=== PATIENT | male | born 1975 | race Caucasian/White ===

== ENCOUNTER → 2018-03-01 | Outpatient (CLI) | payer BC ==
[2018-03-01 10:05] LABS: ABSOLUTE BASOPHILS # (AUTO) 0.1 10^3/uL (0.0-0.2); ABSOLUTE EOSINOPHILS # (AUTO) 0.3 10^3/uL (0.0-0.6); ABSOLUTE MONOCYTES (AUTO) 0.5 10^3/uL (0.1-1.4); BASOPHILS % (AUTO) 1.1 % (0-2); EOSINOPHILS % (AUTO) 4.6 % (0-6); HEMATOCRIT 47.7 % (37.9-51.0); HEMOGLOBIN 16.1 g/dL (13.5-17.0); LYMPHOCYTES % (AUTO) 29.1 % (13-45); MEAN CORPUSCULAR HEMOGLOBIN 30.5 pg (27.0-33.4); MEAN CORPUSCULAR HGB CONC 33.8 g/dL (32.0-36.0); MEAN CORPUSCULAR VOLUME 90 fl (80-97); MONOCYTES % (AUTO) 6.9 % (3-13); PLATELET COUNT 360 10^3/uL (150-450); RED BLOOD COUNT 5.29 10^6/uL (4.35-5.55); RED CELL DISTRIBUTION WIDTH 13.4 % (11.5-14.0); SEGMENTED NEUTROPHILS % (AUTO) 58.3 % (42-78); TOTAL CELLS COUNTED % (AUTO) 100 %; WHITE BLOOD COUNT 6.9 10^3/uL (4.0-10.5)
[2018-03-01 11:15] LABS: ALANINE AMINOTRANSFERASE 34 U/L (21-72); ALBUMIN 4.4 g/dL (3.5-5.0); ALKALINE PHOSPHATASE 77 U/L (38-126); ANION GAP 10 (5-19); ASPARTATE AMINO TRANSFERASE 22 U/L (17-59); BILIRUBIN,DIRECT 0.3 mg/dL (0.0-0.4); BILIRUBIN,TOTAL 0.3 mg/dL (0.2-1.3); BLOOD UREA NITROGEN 16 mg/dL (7-20); CALCIUM 9.8 mg/dL (8.4-10.2); CARBON DIOXIDE 27 mmol/L (22-30); CHLORIDE 107 mmol/L (98-107); GLUCOSE 98 mg/dL (75-110); POTASSIUM 4.5 mmol/L (3.6-5.0); SODIUM 144.2 mmol/L (137-145); TOTAL PROTEIN 7.2 g/dL (6.3-8.2)
[2018-03-01 12:05] LABS: FREE T3 4.42 pg/mL (2.77-5.27)
[2018-03-01 12:11] LABS: FREE T4 (FREE THYROXINE) 0.74 ng/dL (0.78-2.19)
[2018-03-01 12:19] LABS: THYROID STIMULATING HORMONE 1.69 uIU/mL (0.47-4.68)
[2018-03-02 09:01] LABS: DEHYDROEPIANDROSTERONE SULFATE 130.5 ug/dL (102.6-416.3)
[2018-03-03 12:59] LABS: TESTOSTERONE FREE (DIRECT) 10.3 pg/mL (6.8-21.5)
[2018-03-05 07:48] LABS: ESTRONE SERUM 35 pg/mL (12-72); REVERSE T3 15.3 ng/dL (9.2-24.1)
[2018-03-06 07:05] LABS: DIHYDROTESTOSTERONE 20 ng/dL (.)
== END ==
LOC: OD 08:58
PROVIDERS: ATTEND Student in an Organized Health Care Education/Training Program
DX: R53.83 Other fatigue (principal); R63.5 Abnormal weight gain; B35.4 Tinea corporis; G47.33 Obstructive sleep apnea (adult) (pediatric); R03.0 Elevated blood-pressure reading, without diagnosis of hypertension; Z13.220 Encounter for screening for lipoid disorders
CPT/HCPCS: 36415; 80053; 82306; 82607; 82627; 82670; 82679; 83001; 83002; 83090; 83695; 84140; 84146; 84153; 84402; 84403; 84439; 84443; 84481; 84482; 85025; 86340

== ENCOUNTER → 2018-03-15 | Outpatient (CLI) | payer BC ==
[2018-03-17 03:36] LABS: CHOLESTEROL TOTAL 144 mg/dL (100-199); HDL-C 34 mg/dL (>39); HDL-P (TOTAL) 24.9 umol/L (>=30.5); SMALL LDL-P 198 nmol/L (<=527); TRIGLYCERIDES 77 mg/dL (0-149)
[2018-03-17 03:59] LABS: LDL-C 95 mg/dL (0-99); LDL-P 1098 nmol/L (<1000)
[2018-03-17 04:00] LABS: LP-IR SCORE 55 (<=45)
== END ==
LOC: OD 08:30
PROVIDERS: ATTEND Student in an Organized Health Care Education/Training Program
DX: Z00.00 Encounter for general adult medical examination without abnormal findings (principal)
CPT/HCPCS: 36415; 80061

== ENCOUNTER → 2019-02-05 | Outpatient (CLI) | payer BC ==
[2019-02-05 10:23] LABS: ABSOLUTE BASOPHILS # (AUTO) 0.1 10^3/uL (0.0-0.2); ABSOLUTE EOSINOPHILS # (AUTO) 0.2 10^3/uL (0.0-0.6); ABSOLUTE LYMPHOCYTES (AUTO) 1.5 10^3/uL (0.5-4.7); ABSOLUTE MONOCYTES (AUTO) 0.5 10^3/uL (0.1-1.4); ABSOLUTE NEUT (AUTO) 5.9 10^3/uL (1.7-8.2); BASOPHILS % (AUTO) 0.7 % (0-2); EOSINOPHILS % (AUTO) 2.7 % (0-6); HEMATOCRIT 45.3 % (37.9-51.0); HEMOGLOBIN 15.3 g/dL (13.5-17.0); LYMPHOCYTES % (AUTO) 18.8 % (13-45); MEAN CORPUSCULAR HEMOGLOBIN 30.2 pg (27.0-33.4); MEAN CORPUSCULAR HGB CONC 33.7 g/dL (32.0-36.0); MEAN CORPUSCULAR VOLUME 90 fl (80-97); MONOCYTES % (AUTO) 6.5 % (3-13); PLATELET COUNT 337 10^3/uL (150-450); RED BLOOD COUNT 5.05 10^6/uL (4.35-5.55); RED CELL DISTRIBUTION WIDTH 13.6 % (11.5-14.0); SEGMENTED NEUTROPHILS % (AUTO) 71.3 % (42-78); TOTAL CELLS COUNTED % (AUTO) 100 %; WHITE BLOOD COUNT 8.3 10^3/uL (4.0-10.5)
[2019-02-05 10:31] LABS: APPEARANCE,URINE CLEAR; BILIRUBIN,URINE NEGATIVE (NEGATIVE); COLOR,URINE YELLOW; GLUCOSE, URINE NEGATIVE (NEGATIVE); KETONES,URINE NEGATIVE (NEGATIVE); LEUKOCYTE ESTERASE,URINE NEGATIVE (NEGATIVE); NITRITE,URINE NEGATIVE (NEGATIVE); PROTEIN,URINE NEGATIVE (NEGATIVE); URINE SPECIFIC GRAVITY 1.021; UROBILINOGEN,URINE NEGATIVE mg/dL (<2.0)
[2019-02-05 11:03] LABS: ALANINE AMINOTRANSFERASE 32 U/L (21-72); ALBUMIN 4.2 g/dL (3.5-5.0); ALKALINE PHOSPHATASE 71 U/L (38-126); ANION GAP 7 (5-19); ASPARTATE AMINO TRANSFERASE 29 U/L (17-59); BILIRUBIN,DIRECT 0.2 mg/dL (0.0-0.4); BILIRUBIN,TOTAL 0.7 mg/dL (0.2-1.3); BLOOD UREA NITROGEN 16 mg/dL (7-20); CALCIUM 9.7 mg/dL (8.4-10.2); CARBON DIOXIDE 25 mmol/L (22-30); CHLORIDE 108 mmol/L (98-107); CHOLESTEROL 187.04 mg/dL (0-200); CREATINE KINASE 269 U/L (55-170); GAMMA-GLUTAMYL TRANSFERASE 19 U/L (8-78); GLUCOSE 89 mg/dL (75-110); POTASSIUM 4.6 mmol/L (3.6-5.0); SODIUM 140.4 mmol/L (137-145); TOTAL PROTEIN 7.1 g/dL (6.3-8.2); TRIGLYCERIDES 98 mg/dL (<150)
[2019-02-05 11:15] LABS: DIRECT LDL 127 mg/dL (<100)
[2019-02-05 12:27] LABS: CHLAM PCR NOT DETECTED (NOT DETECT); GON PCR NOT DETECTED (NOT DETECT)
[2019-02-06 10:37] LABS: CREATININE URINE 135.4 mg/dL (Not Estab.); MICROALBUMIN URINE 3.1 ug/mL (Not Estab.)
[2019-02-07 10:37] LABS: HEPATITIS C QUANTITATION HCV Not Detected IU/mL (.)
== END ==
LOC: OD 08:42
PROVIDERS: ATTEND Family Medicine
DX: R03.0 Elevated blood-pressure reading, without diagnosis of hypertension (principal); Z12.5 Encounter for screening for malignant neoplasm of prostate; Z11.59 Encounter for screening for other viral diseases
CPT/HCPCS: 36415; 80053; 80061; 81005; 82043; 82306; 82550; 82570; 82607; 82977; 83036; 83525; 83735; 84153; 84403; 84443; 85025; 86592; 86701; 87491; 87522; 87591

== ENCOUNTER → 2019-08-26 | Outpatient (CLI) | payer BC ==
[2019-08-26 09:13] LABS: APPEARANCE,URINE CLEAR; BILIRUBIN,URINE NEGATIVE (NEGATIVE); COLOR,URINE YELLOW; GLUCOSE, URINE NEGATIVE (NEGATIVE); KETONES,URINE NEGATIVE (NEGATIVE); LEUKOCYTE ESTERASE,URINE NEGATIVE (NEGATIVE); NITRITE,URINE NEGATIVE (NEGATIVE); PROTEIN,URINE NEGATIVE (NEGATIVE); UROBILINOGEN,URINE NEGATIVE mg/dL (<2.0)
[2019-08-26 09:37] LABS: ALBUMIN 4.2 g/dL (3.5-5.0); ALKALINE PHOSPHATASE 83 U/L (38-126); ANION GAP 11 (5-19); ASPARTATE AMINO TRANSFERASE 20 U/L (17-59); BILIRUBIN,DIRECT 0.1 mg/dL (0.0-0.4); BILIRUBIN,TOTAL 0.5 mg/dL (0.2-1.3); BLOOD UREA NITROGEN 14 mg/dL (7-20); CALCIUM 9.5 mg/dL (8.4-10.2); CARBON DIOXIDE 24 mmol/L (22-30); CHLORIDE 105 mmol/L (98-107); CHOLESTEROL 193.69 mg/dL (0-200); GLUCOSE 119 mg/dL (75-110); POTASSIUM 4.1 mmol/L (3.6-5.0); TOTAL PROTEIN 7.2 g/dL (6.3-8.2); TRIGLYCERIDES 99 mg/dL (<150)
[2019-08-26 09:50] LABS: DIRECT LDL 140 mg/dL (<100)
[2019-08-27 10:36] LABS: CREATININE URINE 238.8 mg/dL (Not Estab.); MICROALBUMIN URINE 9.2 ug/mL (Not Estab.)
[2019-08-28 10:09] LABS: TESTOSTERONE %FREE/WEAKLY BOUN 33.5 % (9.0-46.0); TESTOSTERONE FREE WEAKLY BOUND 62.6 ng/dL (40.0-250.0)
== END ==
LOC: OD 08:12
PROVIDERS: ATTEND Family Medicine
DX: R03.0 Elevated blood-pressure reading, without diagnosis of hypertension (principal); R79.89 Other specified abnormal findings of blood chemistry
CPT/HCPCS: 36415; 80053; 80061; 81005; 82043; 82570; 84402; 84403

== ENCOUNTER → 2020-10-06 | Outpatient (CLI) | payer BC ==
[2020-10-06 09:06] LABS: ALBUMIN 4.3 g/dL (3.5-5.0); ALKALINE PHOSPHATASE 78 U/L (38-126); ANION GAP 8 (5-19); ASPARTATE AMINO TRANSFERASE 26 U/L (17-59); BILIRUBIN,DIRECT 0.1 mg/dL (0.0-0.4); BILIRUBIN,TOTAL 0.7 mg/dL (0.2-1.3); BLOOD UREA NITROGEN 20 mg/dL (7-20); CALCIUM 9.8 mg/dL (8.4-10.2); CARBON DIOXIDE 27 mmol/L (22-30); CHLORIDE 105 mmol/L (98-107); CHOLESTEROL 205.08 mg/dL (0-200); GLUCOSE 99 mg/dL (75-110); POTASSIUM 4.3 mmol/L (3.6-5.0); TOTAL PROTEIN 7.1 g/dL (6.3-8.2); TRIGLYCERIDES 132 mg/dL (<150)
[2020-10-06 09:17] LABS: DIRECT LDL 140 mg/dL (<100)
[2020-10-07 10:37] LABS: CREATININE URINE 204.5 mg/dL (Not Estab.); MICROALBUMIN URINE 7.7 ug/mL (Not Estab.)
== END ==
LOC: OD 07:37
PROVIDERS: ATTEND Family Medicine
DX: I10 Essential (primary) hypertension (principal); E78.5 Hyperlipidemia, unspecified
CPT/HCPCS: 36415; 80053; 80061; 82043; 82570; 82977

== ENCOUNTER 2020-11-04 18:31 | Emergency (ER) | payer BC ==
[2020-11-04] MEDS ORDERED: RINGERS SOLUTION,LACTATED 1,000 ML IV ONE (19:22)
--- NOTE | 2020-11-04 20:13 | EKG REPORT ---
SEVERITY:- NORMAL ECG - SINUS RHYTHM : Confirmed by: Elia Yates MD 04-Nov-2020 20:12:54
--- NOTE | 2020-11-04 20:27 | RADIOLOGY REPORT (SQ) ---
EXAM DESCRIPTION: CHEST SINGLE VIEW CLINICAL HISTORY: 45 years Male, short of breath. COMPARISON: Single view of the chest March 21, 2013 FINDINGS: Exam is limited secondary to motion. Lungs: There is scattered peripheral areas of nodular infiltrate bilaterally. This is most pronounced in the midlungs. No obvious pneumothorax. No definitive pleural effusions. Mediastinum: Cardiac and mediastinal silhouette are widened and unchanged Bones: Osseous structures are unremarkable IMPRESSION: Low lung volumes with multifocal peripheral nodular infiltrate. This is concerning for multifocal pneumonia.
--- NOTE | 2020-11-04 20:37 | ER Document Report ---
Entered by JENNYFER GORDON SCRIBE 11/04/201951 Acting as scribe for:TATA PANDEY DO ED General - General Chief Complaint: Shortness Of Breath Stated Complaint: SHORTNESS OF BREATH Primary Care Provider: ABRAHAN DIALLO MD [Primary Care Provider] - Follow up as needed Information source: Patient Notes: This 45 year old male patient with history of HTN, presents to the emergency department today with complaints of malaise for the past x1 week. Patient states he was exposed to a coworker who has tested positive a week ago for covid after having borrowed her phone. Patient reports a dry, non-productive cough and low grade fever. has a O2 meter at home and measured his oxygen saturation in the low 80's on room air today. TRAVEL OUTSIDE OF THE [place] IN LAST 30 DAYS: No - Related Data Allergies/Adverse Reactions: No Known Allergies Allergy (Verified 11/04/20 18:42) Past Medical History - General Information source: Patient - Social History Smoking Status: Never Smoker Chew tobacco use (# tins/day): No Frequency of alcohol use: None Drug Abuse: None Family History: Reviewed & Not Pertinent - Past Medical History Cardiac Medical History: Reports: Hx Hypertension - controlled Review of Systems - Review of Systems Constitutional: See HPI, Fever - low grade, Malaise EENT: No symptoms reported Cardiovascular: No symptoms reported Respiratory: See HPI, Cough, Other - low O2 saturation. denies: Sputum Gastrointestinal: No symptoms reported Genitourinary: No symptoms reported Male Genitourinary: No symptoms reported Musculoskeletal: No symptoms reported Skin: No symptoms reported Hematologic/Lymphatic: No symptoms reported Neurological/Psychological: No symptoms reported -: Yes All other systems reviewed and negative Physical Exam - Vital signs Vitals: Temp 99.7 F 11/04/20 18:55 - General General appearance: Alert - HEENT Head: Normocephalic, Atraumatic Eyes: Normal Pupils: PERRL Mouth/Lips: Normal Mucous membranes: Dry - Respiratory Chest status: Nontender Chest palpation: Normal Notes: Breath sounds are mildly diminished bilaterally, clear otherwise. - Cardiovascular Rhythm: Regular Heart sounds: Normal auscultation Murmur: No - Abdominal Inspection: Obese Distension: No distension Bowel sounds: Normal Tenderness: Nontender - Extremities General upper extremity: Normal inspection, Normal ROM General lower extremity: Normal inspection, Normal ROM. No: Edema - Neurological Neuro grossly intact: Yes Cognition: Normal Orientation: AAOx4 [place] Coma Scale Eye Opening: Spontaneous [place] Coma Scale Verbal: Oriented [place] Coma Scale Motor: Obeys Commands [place] Coma Scale Total: 15 Speech: Normal Sensory: Normal - Psychological Associated symptoms: Normal affect, Normal mood - Skin Skin Temperature: Warm Skin Moisture: Dry Skin Color: Normal Course - Re-evaluation Re-evalutation: 11/05/20 00:25 MDM I had long discussion with the pt regarding return precautions and he has home O2 monitor to keep a check on the saturation in his lungs at home. He sats >90 here and tells me he feels comfortable going home. We discussed the treatment reccomendations and he has family at home to help with caring for him. - Vital Signs Vital signs: Temp Pulse Resp BP Pulse Ox 99.3 F 101 H 22 H 134/87 H 95 11/04/20 23:21 11/04/20 23:36 11/04/20 23:36 11/04/20 23:36 11/04/20 23:36 - Laboratory Results Result Diagrams: 11/04/20 20:15 11/04/20 20:15 Laboratory Results Interpreted: 11/04/20 11/04/20 11/04/20 20:15 20:15 20:15 D-Dimer 0.67 H Carbon Dioxide 31 H AST 199 H ALT 245 H Creatine Kinase 258 H C-Reactive Protein 43.8 H Albumin 3.4 L Urine Urobilinogen 4.0 H Critical Laboratory Results Reviewed: No Critical Results - Radiology Results Critical Radiology Results Reviewed: No Critical Results - EKG Interpretation by Me EKG shows normal: Sinus rhythm Rate: Normal Rhythm: NSR - NSR NL axis [address] elevation or depression my interpretation. Discharge - Discharge Clinical Impression: COVID-19 Condition: Stable Disposition: HOME, SELF-CARE Instructions: COVID-19 Guidance for Persons Under Investigation, Pneumonia ([facility]) Additional Instructions: You have covid pneumonia. Take 1 gram of Vitamin C daily. Take Vitamin D Daily. Take 50 mg Zinc daily. Take 162 mg aspirin daily. Take the steroids as directed. Call your doctor in the morning for follow up. Please return here for chest pain or shortness of breath or other problems or concerns. Your medicine was sent to [facility] in [place]. Prescriptions: Albuterol Sulfate [Albuterol Sulfate Hfa] 2 puff IH TID #1 hfa.aer.ad Dexamethasone [Decadron] 4 mg PO DAILY #12 tablet Cholecalciferol (Vitamin D3) [Vitamin D3 400 Unit Tablet] 800 unit PO DAILY #30 tablet Zinc [Zinc Chelated] 50 mg PO DAILY #14 tablet Referrals: ABRAHAN DIALLO MD [Primary Care Provider] - Follow up as needed I personally performed the services described in the documentation, reviewed and edited the documentation which was dictated to the scribe in my presence, and it accurately records my words and actions.
[2020-11-04 20:38] LABS: APPEARANCE,URINE CLEAR; BILIRUBIN,URINE NEGATIVE (NEGATIVE); COLOR,URINE YELLOW; GLUCOSE, URINE NEGATIVE (NEGATIVE); KETONES,URINE NEGATIVE (NEGATIVE); LEUKOCYTE ESTERASE,URINE NEGATIVE (NEGATIVE); NITRITE,URINE NEGATIVE (NEGATIVE); PROTEIN,URINE NEGATIVE (NEGATIVE); URINE SPECIFIC GRAVITY 1.014
[2020-11-04 20:44] LABS: ABSOLUTE MONOCYTES (AUTO) 0.4 10^3/uL (0.1-1.4); BASOPHILS % (AUTO) 0.2 % (0-2); LYMPHOCYTES % (AUTO) 18.8 % (13-45); MEAN CORPUSCULAR HGB CONC 34.1 g/dL (32.0-36.0); MEAN CORPUSCULAR VOLUME 88 fl (80-97); PLATELET COUNT 244 10^3/uL (150-450); RED BLOOD COUNT 4.67 10^6/uL (4.35-5.55); RED CELL DISTRIBUTION WIDTH 13.3 % (11.5-14.0); TOTAL CELLS COUNTED % (AUTO) 100 %; WHITE BLOOD COUNT 5.5 10^3/uL (4.0-10.5)
[2020-11-04 20:56] LABS: ALBUMIN 3.4 g/dL (3.5-5.0); ALKALINE PHOSPHATASE 79 U/L (38-126); ANION GAP 6 (5-19); ASPARTATE AMINO TRANSFERASE 199 U/L (17-59); BILIRUBIN,DIRECT 0.3 mg/dL (0.0-0.4); BILIRUBIN,TOTAL 0.5 mg/dL (0.2-1.3); BLOOD UREA NITROGEN 11 mg/dL (7-20); C-REACTIVE PROTEIN 43.8 mg/L (<10.0); CALCIUM 8.5 mg/dL (8.4-10.2); CARBON DIOXIDE 31 mmol/L (22-30); CHLORIDE 102 mmol/L (98-107); CREATINE KINASE 258 U/L (55-170); GLUCOSE 100 mg/dL (75-110); POTASSIUM 3.8 mmol/L (3.6-5.0); TOTAL PROTEIN 6.4 g/dL (6.3-8.2)
[2020-11-04] MEDS ORDERED: DEXAMETHASONE SOD PHOSPHATE INJ 4 MG/1 ML VIAL IV ONE (21:06)
[2020-11-04] MEDS ORDERED: CEFTRIAXONE 1 GM/D5W RTU 1 GM/50 ML RTUPB IV ONE (21:07)
[2020-11-04] MEDS ORDERED: ACETAMINOPHEN 325 MG TABLET PO ONE (21:08)
--- NOTE | 2020-11-04 22:44 | RADIOLOGY REPORT (SQ) ---
EXAM DESCRIPTION: CT CHEST ANGIOGRAPHY WITH IV CONTRAST COMPLETED DATE/TME: 11/04/2020 22:22 CLINICAL HISTORY: 45 years, Male, sob, COVID + COMPARISON: None. TECHNIQUE: 649 Images stored on PACS. All CT scanners at this facility use dose modulation, iterative reconstruction, and/or weight based dosing when appropriate to reduce radiation dose to as low as reasonably achievable (ALARA). Axial CTA images with coronal and sagittal MIPS [facility]: Dose Right [facility]: CareDose [facility]: Dose Right [facility]: Teradose 4D [facility]: [employer] LIMITATIONS: None. FINDINGS: Contrast bolus is significantly suboptimal. No large or central pulmonary embolus. Evaluation of the remaining arterial branches is nondiagnostic. Nonenlarged mediastinal and hilar lymph nodes. Negative for thoracic aortic aneurysm or dissection. The heart and pericardium are unremarkable. Limited evaluation of the upper abdomen shows fatty infiltrative change to the liver. Subcentimeter hypodensity in the left hepatic lobe likely reflects tiny cyst. Osseous structures are grossly intact. There is no pneumothorax. Extensive groundglass opacities bilaterally consistent with multifocal pneumonitis. No effusion IMPRESSION: Multifocal pneumonitis with extensive groundglass opacities bilaterally. No large or central pulmonary embolus. Suboptimal contrast bolus TECHNICAL DOCUMENTATION: Quality ID # [id number]: Final reports with documentation of one or more dose reduction techniques (e.g., Automated exposure control, adjustment of the mA and/or kV according to patient size, use of iterative reconstruction technique) copyright 2010 [email or web address]- All Rights Reserved
[2020-11-04 23:37] VITALS: BP 134/87
== END 2020-11-05 00:23 | disposition home or self-care (01) ==
LOC: ER 18:31
DX: U07.1 COVID-19 (principal); R53.81 Other malaise; R05 Cough; R50.9 Fever, unspecified; I10 Essential (primary) hypertension
CPT/HCPCS: 93005; 99285; 96361; 96375; 96365; 36415; 87040; 82550; 83605; 85025; 0241U; 86140; 80053; 81001; 84484; 85379; 71045; 71275; 93010; J1100; J7120; J0696; C9803

== ENCOUNTER 2020-11-06 11:28 | Emergency (ER) | payer BC ==
[2020-11-06] MEDS ORDERED: DEXAMETHASONE SOD PHOS INJ 10 MG/1 ML VIAL IV ONE (11:49)
[2020-11-06] MEDS ORDERED: AZITHROMYCIN INJ 500 MG VIAL IV ONE (11:49)
[2020-11-06] MEDS ORDERED: CEFTRIAXONE INJ 1000 MG VIAL IV ONE (11:50)
--- NOTE | 2020-11-06 11:51 | ER Document Report ---
ED Respiratory Problem - General Chief Complaint: Breathing Difficulty Stated Complaint: DIFFICULTY BREATHING Time Seen by Provider: 11/06/20 11:37 Primary Care Provider: ABRAHAN DIALLO MD [Primary Care Provider] - Follow up as needed Mode of Arrival: Ambulatory Information source: Patient Notes: 45-year-old male who was here in ER on 04 November and tested positive for Covid. Since then he has been having progressive shortness of breath with 84% room air sats. He reports she has 16 hunting dogs and he loves to reyes deer at but none the dogs are sick at this time. Patient denies any fever chills sore throat cephalgia. Patient reports he does have a oxygen tank at home but needs a regulator. He is related to Grace who works here at the ER. TRAVEL OUTSIDE OF THE [place] IN LAST 30 DAYS: No - HPI Patient complains to provider of: Cough, Short of breath Onset: Other - x few days Severity: Mild Pain Level: 1 Context: denies: Hx asthma, Hx CHF, Hx COPD, Malignancy, , Recent car diac event, Recent foreign travel, Recent long distance trvl, Recent immobilization, Recent surgery, Smoker - Related Data Allergies/Adverse Reactions: No Known Allergies Allergy (Verified 11/04/20 18:42) Past Medical History - General Information source: Patient - Social History Smoking Status: Never Smoker Cigarette use (# per day): No Chew tobacco use (# tins/day): No Smoking Education Provided: No Frequency of alcohol use: None Lives with: Family Family History: Reviewed & Not Pertinent Patient has suicidal ideation: No Patient has homicidal ideation: No - Past Medical History Cardiac Medical History: Reports: Hx Hypertension - controlled Review of Systems - Review of Systems Constitutional: See HPI, Fever, Malaise, Weakness, Recent illness EENT: No symptoms reported Cardiovascular: No symptoms reported Respiratory: See HPI, Cough, Short of breath Gastrointestinal: No symptoms reported Genitourinary: No symptoms reported Male Genitourinary: No symptoms reported Musculoskeletal: No symptoms reported Skin: No symptoms reported Hematologic/Lymphatic: No symptoms reported Neurological/Psychological: No symptoms reported Physical Exam - Vital signs Vitals: Temp Pulse Resp BP Pulse Ox 98.5 F 103 H 26 H 143/78 H 84 L 11/06/20 11:33 11/06/20 11:33 11/06/20 11:33 11/06/20 11:33 11/06/20 11:33 Interpretation: Hypertensive, Hypoxic, Tachypneic, Febrile - General General appearance: Appears well, Alert - HEENT Head: Normocephalic, Atraumatic Eyes: Normal Pupils: PERRL - Respiratory Respiratory status: Labored, Tachypnea Chest status: Nontender Breath sounds: Decreased air movement Chest palpation: Normal - Cardiovascular Rhythm: Regular Heart sounds: Normal auscultation Murmur: No - Abdominal Inspection: Normal Distension: No distension Bowel sounds: Normal Tenderness: Nontender Organomegaly: No organomegaly - Rectal Prostate: Other - deferred - Genitourinary Scrotum: Other - Deferred - Back Back: Normal, Nontender - Extremities General upper extremity: Normal inspection, Nontender, Normal color, Normal ROM, Normal temperature General lower extremity: Normal inspection, Nontender, Normal color, Normal ROM, Normal temperature, Normal weight bearing. No: Brigida's sign - Neurological Neuro grossly intact: Yes Cognition: Normal Orientation: AAOx4 [place] Coma Scale Eye Opening: Spontaneous Angie Coma Scale Verbal: Oriented Angie Coma Scale Motor: Obeys Commands [place] Coma Scale Total: 15 Speech: Normal Motor strength normal: LUE, RUE, LLE, RLE Sensory: Normal - Psychological Associated symptoms: Normal affect, Normal mood - Skin Skin Temperature: Warm Skin Moisture: Dry Skin Color: Normal Course - Vital Signs Vital signs: Temp Pulse Resp BP Pulse Ox 98.5 F 103 H 22 H 137/85 H 92 11/06/20 11:33 11/06/20 11:33 11/06/20 14:01 11/06/20 14:01 11/06/20 14:01 - Laboratory Results Result Diagrams: 11/06/20 12:01 11/06/20 12:01 Laboratory Results Interpreted: 11/06/20 11/06/20 11/06/20 12:01 12:01 12:01 WBC 15.0 H D Seg Neuts % (Manual) 92 H Lymphocytes % (Manual) 6 L Monocytes % (Manual) 2 L Abs Neuts (Manual) 13.8 H VBG pH 7.48 H Glucose 125 H AST 90 H ALT 158 H Critical Laboratory Results Reviewed: Yes Attending or Supervising Physician who Reviewed Labs: MILY BOWDEN JR - Radiology Results Critical Radiology Results Reviewed: Yes Attending or Supervising Physician who Reviewed Radiology: MILY BOWDEN JR Critical Care Note - Critical Care Note Comments: I advised patient he may stay in the hospital but patient advises he would prefer to go home on oxygen. May use the nasal cannula as we have used here and his treatment today. Discharge - Discharge Clinical Impression: Hypoxia Pneumonia Qualifiers: Pneumonia type: due to unspecified organism Laterality: unspecified laterality Lung location: unspecified part of lung Qualified Code(s): J18.9 - Pneumonia, unspecified organism Condition: Stable Disposition: HOME, SELF-CARE Additional Instructions: Use oxygen as directed encourage fluids and return to ER if you become more severely hypoxic short of breath. Take medicines as directed. Also ivermectin is of no known treatment for COVID-19 according to studies. This has been given to you here because of a [place] study only. Also take Pepcid [id number] or by prescription as well as Zithromax. Continue with your Decadron steroid medication. Prescriptions: Famotidine [Pepcid 20 mg Tablet] 20 mg PO BID #12 tablet Azithromycin [Zithromax 250 mg Tablet] 250 mg PO ASDIR PRN #6 tablet PRN Reason: Forms: Return to Work Referrals: ABRAHAN DIALLO MD [Primary Care Provider] - Follow up as needed
--- NOTE | 2020-11-06 11:51 | RADIOLOGY REPORT (SQ) ---
EXAM DESCRIPTION: CHEST SINGLE VIEW IMAGES COMPLETED DATE/TIME: 11/06/2020 11:40 am REASON FOR STUDY: bed 10 sepsis protocol COMPARISON: 11/04/2020. EXAM PARAMETERS: NUMBER OF VIEWS: One view. TECHNIQUE: Single frontal radiographic view of the chest acquired. RADIATION DOSE: NA LIMITATIONS: None. FINDINGS: LUNGS AND PLEURA: Faint bilateral airspace disease, generally improved. No pleural effusi on. No pneumothorax. MEDIASTINUM AND HILAR STRUCTURES: No masses. Contour normal. HEART AND VASCULAR STRUCTURES: Heart normal in size. Normal vasculature. BONES: No acute findings. HARDWARE: None in the chest. OTHER: No other significant finding. IMPRESSION: MULTIFOCAL PNEUMONIA. GENERALLY IMPROVED APPEARANCE. TECHNICAL DOCUMENTATION: JOB ID: [id number] 2010 [employer]- All Rights Reserved Reading location - IP/workstation name: [email or web address]
[2020-11-06 12:24] LABS: INTERNATIONAL RATION (INR) 0.87; PROTHROMBIN TIME 12.1 SEC (11.4-15.4)
[2020-11-06 12:30] LABS: VENOUS BLOOD BASE EXCESS 3.7 mmol/L; VENOUS BLOOD HCO3 27.1 mmol/L (20-32); VENOUS BLOOD PCO2 37.3 mmHg (35-63); VENOUS BLOOD PH 7.48 (7.30-7.42)
[2020-11-06 12:34] LABS: HEMATOCRIT 40.5 % (37.9-51.0); HEMOGLOBIN 13.8 g/dL (13.5-17.0); MEAN CORPUSCULAR HEMOGLOBIN 29.9 pg (27.0-33.4); MEAN CORPUSCULAR HGB CONC 34.1 g/dL (32.0-36.0); MEAN CORPUSCULAR VOLUME 88 fl (80-97); PLATELET COUNT 359 10^3/uL (150-450); RED BLOOD COUNT 4.62 10^6/uL (4.35-5.55); RED CELL DISTRIBUTION WIDTH 13.5 % (11.5-14.0)
[2020-11-06 12:41] LABS: ALBUMIN 3.5 g/dL (3.5-5.0); ALKALINE PHOSPHATASE 74 U/L (38-126); ANION GAP 8 (5-19); ASPARTATE AMINO TRANSFERASE 90 U/L (17-59); BILIRUBIN,DIRECT 0.3 mg/dL (0.0-0.4); BILIRUBIN,TOTAL 0.6 mg/dL (0.2-1.3); BLOOD UREA NITROGEN 15 mg/dL (7-20); CALCIUM 9.1 mg/dL (8.4-10.2); CARBON DIOXIDE 27 mmol/L (22-30); CHLORIDE 105 mmol/L (98-107); GLUCOSE 125 mg/dL (75-110); TOTAL PROTEIN 6.4 g/dL (6.3-8.2)
[2020-11-06] MEDS ORDERED: IVERMECTIN 3 MG TABLET PO ONE (13:08)
[2020-11-06] MEDS ORDERED: FAMOTIDINE 20 MG TABLET PO ONE (13:08)
[2020-11-06 13:10] LABS: ABSOLUTE LYMPHOCYTES# (MANUAL) 0.9 10^3/uL (0.5-4.7); ABSOLUTE MONOCYTES # (MANUAL) 0.3 10^3/uL (0.1-1.4); BASOPHILS % (MANUAL) 0 % (0-2); EOSINOPHILS % (MANUAL) 0 % (0-6); LYMPHOCYTES % (MANUAL) 6 % (13-45); MONOCYTES % (MANUAL) 2 % (3-13); SEGMENTED NEUTROPHILS % (MAN) 92 % (42-78); TOTAL CELLS COUNTED 100
[2020-11-06 13:11] LABS: WBC MORPHOLOGY COMMENT A
[2020-11-06 13:21] LABS: PLATELET COMMENT ADEQUATE
[2020-11-06 15:34] VITALS: BP 153/91
--- NOTE | 2020-11-06 22:26 | EKG REPORT ---
SEVERITY:- NORMAL ECG - SINUS RHYTHM : Confirmed by: Elia Yates MD 06-Nov-2020 22:25:27
== END 2020-11-06 16:50 | disposition home or self-care (01) ==
LOC: ER 11:28
DX: U07.1 COVID-19 (principal); J12.89 Other viral pneumonia; R09.02 Hypoxemia; R06.02 Shortness of breath; R05 Cough
CPT/HCPCS: 93005; 99285; 96375; 96365; 96367; 36415; 87040; 83605; 85025; 85610; 80053; 84484; 82803; 71045; 93010; J0696; J0456; J1100

== ENCOUNTER 2020-11-08 13:17 | Inpatient (IN) | payer BC ==
[2020-11-08 13:52] LABS: ABSOLUTE LYMPHOCYTES (AUTO) 0.7 10^3/uL (0.5-4.7); ABSOLUTE MONOCYTES (AUTO) 1.2 10^3/uL (0.1-1.4); ABSOLUTE NEUT (AUTO) 10.1 10^3/uL (1.7-8.2); BASOPHILS % (AUTO) 0.1 % (0-2); HEMATOCRIT 42.1 % (37.9-51.0); HEMOGLOBIN 14.1 g/dL (13.5-17.0); LYMPHOCYTES % (AUTO) 5.4 % (13-45); MEAN CORPUSCULAR HEMOGLOBIN 29.5 pg (27.0-33.4); MEAN CORPUSCULAR HGB CONC 33.4 g/dL (32.0-36.0); MEAN CORPUSCULAR VOLUME 88 fl (80-97); MONOCYTES % (AUTO) 10.1 % (3-13); PLATELET COUNT 440 10^3/uL (150-450); RED BLOOD COUNT 4.77 10^6/uL (4.35-5.55); RED CELL DISTRIBUTION WIDTH 13.3 % (11.5-14.0); SEGMENTED NEUTROPHILS % (AUTO) 84.4 % (42-78); TOTAL CELLS COUNTED % (AUTO) 100 %
--- NOTE | 2020-11-08 14:04 | RADIOLOGY REPORT (SQ) ---
EXAM DESCRIPTION: CHEST SINGLE VIEW IMAGES COMPLETED DATE/TIME: 11/08/2020 1:37 pm REASON FOR STUDY: shortness of breath COMPARISON: 11/06/2020. EXAM PARAMETERS: NUMBER OF VIEWS: One view. TECHNIQUE: Single frontal radiographic view of the chest acquired. RADIATION DOSE: NA LIMITATIONS: None. FINDINGS: LUNGS AND PLEURA: Diffuse bilateral airspace disease. MEDIASTINUM AND HILAR STRUCTURES: No masses. Contour normal. HEART AND VASCULAR STRUCTURES: Heart normal in size. Normal vasculature. BONES: No acute findings. HARDWARE: None in the chest. OTHER: No other significant finding. IMPRESSION: MULTIFOCAL PNEUMONIA. NO SIGNIFICANT INTERVAL CHANGE. TECHNICAL DOCUMENTATION: JOB ID: [id number] 2010 [employer]- All Rights Reserved Reading location - IP/workstation name: [email or web address]
[2020-11-08 14:11] LABS: ALBUMIN 3.3 g/dL (3.5-5.0); ALKALINE PHOSPHATASE 72 U/L (38-126); ANION GAP 8 (5-19); ASPARTATE AMINO TRANSFERASE 57 U/L (17-59); BILIRUBIN,DIRECT 0.2 mg/dL (0.0-0.4); BILIRUBIN,TOTAL 0.5 mg/dL (0.2-1.3); BLOOD UREA NITROGEN 14 mg/dL (7-20); CALCIUM 8.9 mg/dL (8.4-10.2); CARBON DIOXIDE 26 mmol/L (22-30); CHLORIDE 104 mmol/L (98-107); GLUCOSE 129 mg/dL (75-110); POTASSIUM 4.1 mmol/L (3.6-5.0); TOTAL PROTEIN 6.1 g/dL (6.3-8.2)
[2020-11-08 14:46] LABS: APPEARANCE,URINE CLEAR; BILIRUBIN,URINE NEGATIVE (NEGATIVE); COLOR,URINE YELLOW; GLUCOSE, URINE NEGATIVE (NEGATIVE); KETONES,URINE NEGATIVE (NEGATIVE); LEUKOCYTE ESTERASE,URINE NEGATIVE (NEGATIVE); NITRITE,URINE NEGATIVE (NEGATIVE); PROTEIN,URINE NEGATIVE (NEGATIVE); URINE SPECIFIC GRAVITY 1.015; UROBILINOGEN,URINE NEGATIVE mg/dL (<2.0)
--- NOTE | 2020-11-08 15:09 | ER Document Report ---
ED General - General Chief Complaint: Shortness Of Breath Stated Complaint: SHORTNESS OF BREATH Time Seen by Provider: 11/08/20 13:54 Primary Care Provider: ABRAHAN DIALLO MD [Primary Care Provider] - Follow up as needed Information source: Patient TRAVEL OUTSIDE OF THE [place] IN LAST 30 DAYS: No - HPI Notes: Patient presents with shortness of breath. He states he was positive for Covid approximately 4 days ago. He has progressively becoming more and more short of breath. On his last visit here which was 2 days ago he was prescribed oxygen and initially was wearing 2 L at home but is now requiring 4. He is also having severe exertional dyspnea. His shortness of breath is severe and constant. Is worse with exertion and better with rest. He denies any significant pain. He does have a dry cough. He is currently home on steroids albuterol and antibiotics but without relief. He denies any chronic medical conditions. - Related Data Allergies/Adverse Reactions: No Known Allergies Allergy (Verified 11/04/20 18:42) Past Medical History - General Information source: Patient - Social History Smoking Status: Never Smoker Frequency of alcohol use: None Drug Abuse: None Family History: Reviewed & Not Pertinent - Past Medical History Cardiac Medical History: Reports: Hx Hypertension - controlled Review of Systems - Review of Systems Constitutional: Chills, Fever, Malaise, Recent illness Cardiovascular: denies: Chest pain, Palpitations Respiratory: Cough, Short of breath -: Yes All other systems reviewed and negative Physical Exam - Vital signs Vitals: Resp BP 12 146/113 H 11/08/20 13:26 11/08/20 13:26 Interpretation: Hypertensive - General General appearance: Appears well, Alert - HEENT Head: Normocephalic, Atraumatic Eyes: Normal Pupils: PERRL - Respiratory Respiratory status: No respiratory distress, Labored, Tachypnea Breath sounds: Decreased air movement - Cardiovascular Rhythm: Regular Notes: No JVD - Abdominal Inspection: Obese Distension: Distended - Back Back: Normal, Nontender - Extremities General upper extremity: Normal inspection, Normal color, Normal ROM General lower extremity: Normal inspection, Normal color, Normal ROM, Normal weight bearing - Neurological Neuro grossly intact: Yes Cognition: Normal Orientation: AAOx4 [place] Coma Scale Eye Opening: Spontaneous [place] Coma Scale Verbal: Oriented Angie Coma Scale Motor: Obeys Commands [place] Coma Scale Total: 15 Speech: Normal Motor strength normal: LUE, RUE, LLE, RLE Sensory: Normal - Psychological Associated symptoms: Normal affect, Normal mood - Skin Skin Temperature: Warm Skin Moisture: Dry Skin Color: Normal Course - Re-evaluation Re-evalutation: 11/08/20 15:08 Patient presents with progressive shortness of breath with a known history of being positive for Covid with bilateral pneumonia. He is on home oxygen but continues to do worse. He is also on home steroids Zithromax as well as vitamins. It seems most prudent at this time the patient be admitted to the hospital for further evaluation. - Vital Signs Vital signs: Temp Pulse Resp BP Pulse Ox 97.5 F 24 H 146/84 H 94 11/08/20 14:00 11/08/20 14:01 11/08/20 14:01 11/08/20 14:05 - Laboratory Results Result Diagrams: 11/08/20 13:36 11/08/20 13:36 Laboratory Results Interpreted: 11/08/20 11/08/20 13:36 13:36 WBC 12.0 H Lymph % (Auto) 5.4 L Absolute Neuts (auto) 10.1 H Seg Neutrophils % 84.4 H Glucose 129 H ALT 125 H Total Protein 6.1 L Albumin 3.3 L Critical Laboratory Results Reviewed: No Critical Results - Radiology Results Critical Radiology Results Reviewed: Yes Attending or Supervising Physician who Reviewed Radiology: BECKY FISCHER Discharge - Discharge Clinical Impression: Pneumonia due to COVID-19 virus, Hypoxia Condition: Serious Disposition: ADMITTED INPATIENT Admitting Provider: Slime (Hospitalist) Unit Admitted: IMCU Referrals: ABRAHAN DIALLO MD [Primary Care Provider] - Follow up as needed
[2020-11-08] MEDS ORDERED: ONDANSETRON 4 MG TAB.RAPDIS PO PRN (19:06)
[2020-11-08] MEDS ORDERED: ONDANSETRON HCL INJ/PF 4 MG/2 ML SDV IV PRN (19:06)
--- NOTE | 2020-11-08 19:25 | PDOC H&P ---
History of Present Illness Admission Date/PCP: 11/08/20 15:26 ABRAHAN DIALLO MD History of Present Illness: LISA MUNIZ is a 45 year old male with past medical history significant for morbid obesity with BMI 40.7, hypertension, NISHA on CPAP who presents the ED with a 12-day history of progressive myalgias/generalized fatigue/shortness of breath/PACHECO. Patient was tested for COVID-19 on 11/04 he was positive. ED recommended admission and patient refused. He was sent home with dexamethasone, vitamins, and home oxygen orders. Patient was maintained on 4 L nasal cannula at home unfortunately his shortness of breath and PACHECO progressively worsened and he returned to the ED where he was seen a second time and discharged home on azithromycin. Patient presented to the ED again today and is now agreeable to admission. Patient denies any fevers or significant cough. He denies any sig nificant cardiac or lung disease history. He only smoked for a very brief period of time as a teenager and then quit. His only home medications are lisinopril/HCTZ combo pill and phentermine. Patient is admitted for standard Covid pneumonia monitoring and treatment per [facility] protocol as directed by the [facility]. All aspects of treatment plan discussed with patient and he states he is in full agreement with this. Past Medical History Cardiac Medical History: Reports: Hypertension - controlled Pulmonary Medical History: Reports: Sleep Apnea Psychiatric Medical History: Denies: Depression Past Surgical History Past Surgical History: Reports: None Social History Information Source: Patient, Emergency Med Personnel Lives with: Family Smoking Status: Never Smoker Frequency of Alcohol Use: Rare Hx Recreational Drug Use: No Hx Prescription Drug Abuse: No - Advance Directive Resuscitation Status: Full Code Surrogate healthcare decision maker:: Admitting diagnosis: COVID-19 pneumonia All aspects of code status discussed with patient/POA including cardioversion, chest compressions, and intubation and the patient/POA indicated they wish to be full code MPOA is designated as: , Grace Muniz Time spent: Greater than 16 minutes Family History Family History: Reviewed & Not Pertinent, CAD Parental Family History Reviewed: Yes Children Family History Reviewed: Yes Sibling(s) Family History Reviewed.: Yes Medication/Allergy Home Medications: Albuterol Sulfate [Albuterol Sulfate Hfa] 2 puff IH TID #1 hfa.aer.[email or web address] 11/04/20 Cholecalciferol (Vitamin D3) [Vitamin D3 400 Unit Tablet] 800 unit PO DAILY #30 tablet 11/04/20 Dexamethasone [Decadron] 4 mg PO DAILY #12 tablet 11/04/20 Lisinopril/Hydrochlorothiazide [Lisinopril-Hctz 20-12.5 mg Tab] 1 each PO DAILY 11/04/20 Phentermine HCl 37.5 mg PO DAILY 11/04/20 Zinc [Zinc Chelated] 50 mg PO DAILY #14 tablet 11/04/20 Azithromycin [Zithromax 250 mg Tablet] 250 mg PO ASDIR PRN #6 tablet 11/06/20 Famotidine [Pepcid 20 mg Tablet] 20 mg PO BID #12 tablet 11/06/20 Allergies/Adverse Reactions: No Known Allergies Allergy (Verified 11/04/20 18:42) Review of Systems All systems: reviewed and no additional remarkable complaints except as stated - Her HPI otherwise negative Physical Exam Vital Signs: Temp Pulse Resp BP Pulse Ox 97.5 F 87 28 H 150/99 H 90 L 11/08/20 17:48 11/08/20 17:48 11/08/20 17:48 11/08/20 17:08 11/08/20 17:48 Intake & Output 11/07/20 11/08/20 11/09/20 06:59 06:59 06:59 Weight 136.078 kg Exam: General appearance: PRESENT: no acute distress, well-developed, well-nourished, morbidly obese white male with BMI 40.7 Head exam: PRESENT: atraumatic, normocephalic Eye exam: PRESENT: conjunctiva pink. ABSENT: scleral icterus Mouth exam: PRESENT: moist Respiratory exam: PRESENT: Scant fine crackles bilateral lung madrigal ABSENT: rales, wheezes Cardiovascular exam: PRESENT: RRR. ABSENT: diastolic murmur, rubs, systolic murmur GI/Abdominal exam: PRESENT: normal bowel sounds, soft. ABSENT: distended, guarding, mass, organolmegaly, rebound, tenderness Neurological exam: PRESENT: alert, awake, oriented to person, oriented to place, oriented to time, oriented to situation Psychiatric exam: PRESENT: appropriate affect, normal mood Skin exam: PRESENT: dry, intact, warm Results Laboratory Results: 11/08/20 13:36 11/08/20 13:36 11/08/20 11/08/20 11/08/20 13:36 13:36 14:35 WBC 12.0 H RBC 4.77 Hgb 14.1 Hct 42.1 MCV 88 MCH 29.5 MCHC 33.4 RDW 13.3 Plt Count 440 Seg Neutrophils % 84.4 H Sodium 138.3 Potassium 4.1 Chloride 104 Carbon Dioxide 26 Anion Gap 8 BUN 14 Creatinine 0.82 Est GFR ( Amer) > 60 Glucose 129 H Calcium 8.9 Total Bilirubin 0.5 AST 57 Alkaline Phosphatase 72 Total Protein 6.1 L Albumin 3.3 L Urine Color YELLOW Urine Appearance CLEAR Urine pH 8.0 Ur Specific [place] 1.015 Urine Protein NEGATIVE Urine Glucose (UA) NEGATIVE Urine Ketones NEGATIVE Urine Blood NEGATIVE Urine Nitrite NEGATIVE Ur Leukocyte Esterase NEGATIVE Urine WBC (Auto) 1 Impressions: Chest X-Ray 11/08/20 13:20 IMPRESSION: MULTIFOCAL PNEUMONIA. NO SIGNIFICANT INTERVAL CHANGE. Assessment and Plan - Diagnosis (1) Pneumonia due to COVID-19 virus Is this a current diagnosis for this admission?: Yes Plan: -Symptoms/history consistent with covid-19 infection -Covid-19 test: 11/04 -CXR showed: Bilateral pneumonia consistent with COVID-19 -CTPA showed: Negative PE, bilateral pneumonia consistent with COVID-19 -standard of care vitamin supplements: zinc, ascorbic acid, vitamin d, melatonin -maintain magnesium of 2 mg/dL or higher -Current literature does not show clear benefit from the use of remdesivir or plaquenil; unclear benefit of convalescent plasma -supplemental oxygen and BiPAP/CPAP as needed -prn combivent/nebs as able -do not hold anticoagulation unless actively bleeding or platelet count <50 -close monitoring for acute respiratory decline requiring ICU transfer and intubation -ivermectin 0.3mg/kg X5d as directed by [facility] protocol (2) Acute hypoxemic respiratory failure Is this a current diagnosis for this admission?: Yes Plan: Due to COVID-19 pneumonia Supplemental oxygen as needed to maintain saturation 92% or higher Treat underlying cause with above regimen CPAP nightly with supplemental oxygen for NISHA (3) Hypertension Qualifiers: Hypertension type: essential hypertension Qualified Code(s): I10 - Essential (primary) hypertension Is this a current diagnosis for this admission?: Yes Plan: Continue HCTZ/lisinopril combo (4) Morbid obesity with BMI of 40.0-44.9, adult Is this a current diagnosis for this admission?: Yes Plan: Needs weight loss Hold phentermine - Time Time Spent with patient: 35 or more minutes Medications reviewed and adjusted accordingly: Yes Anticipated Discharge Disposition: Home, Self Care Anticipated Discharge Timeframe: within 72 hours - Inpatient Certification Based on my medical assessment, after consideration of the patient's comorbidities, presenting symptoms, or acuity I expect that the services needed warrant INPATIENT care.: Yes I certify that my determination is in accordance with my understanding of Medicare's requirements for reasonable and necessary INPATIENT services [42 CFR 412.3e].: Yes Medical Necessity: Significant Comorbidiites Make Outpatient Treatment Too Risky, Need Close Monitoring Due to Risk of Patient Decompensation, Risk of Complication if Not Cared For in Hospital, Risk of Diagnosis Which Will Require Inpatient Eval/Care/Monitoring
[2020-11-08] MEDS: ZINC SULFATE 220 MG CAPSULE PO SCH (19:42)
[2020-11-08] MEDS: ASCORBIC ACID 500 MG TABLET PO SCH (19:42)
[2020-11-08] MEDS: CHOLECALCIFEROL (D3) 1,000 UNIT (25 MCG) TABLET PO SCH (19:42)
[2020-11-08] MEDS: VITAMIN B COMPLEX TABLET PO SCH (19:42)
[2020-11-08] MEDS: METHYLPREDNISOLONE INJ 40 MG/1 ML SDV IV SCH (19:42)
[2020-11-08 20:32] LABS: C-REACTIVE PROTEIN 24.4 mg/L (<10.0)
[2020-11-08] MEDS: FAMOTIDINE INJ/PF 20 MG/2 ML SDV IV SCH (21:44)
[2020-11-08] MEDS: ENOXAPARIN SODIUM INJ 60 MG/0.6 ML DISP.SYRIN SUBCUT SCH (21:45)
[2020-11-08] MEDS: IVERMECTIN 3 MG TABLET PO SCH (21:58)
[2020-11-08] MEDS ORDERED: ENOXAPARIN SODIUM INJ 40 MG/0.4 ML DISP.SYRIN SUBCUT SCH (22:00)
[2020-11-09 05:10] LABS: ABSOLUTE LYMPHOCYTES (AUTO) 0.9 10^3/uL (0.5-4.7); ABSOLUTE NEUT (AUTO) 8.6 10^3/uL (1.7-8.2); BASOPHILS % (AUTO) 0.4 % (0-2); HEMATOCRIT 44.2 % (37.9-51.0); HEMOGLOBIN 14.9 g/dL (13.5-17.0); LYMPHOCYTES % (AUTO) 8.9 % (13-45); MEAN CORPUSCULAR HGB CONC 33.6 g/dL (32.0-36.0); MEAN CORPUSCULAR VOLUME 89 fl (80-97); MONOCYTES % (AUTO) 9.3 % (3-13); PLATELET COUNT 425 10^3/uL (150-450); RED BLOOD COUNT 4.96 10^6/uL (4.35-5.55); RED CELL DISTRIBUTION WIDTH 13.4 % (11.5-14.0); SEGMENTED NEUTROPHILS % (AUTO) 81.4 % (42-78); TOTAL CELLS COUNTED % (AUTO) 100 %; WHITE BLOOD COUNT 10.6 10^3/uL (4.0-10.5)
[2020-11-09 05:23] LABS: ANION GAP 7 (5-19); BLOOD UREA NITROGEN 16 mg/dL (7-20); CALCIUM 8.8 mg/dL (8.4-10.2); CARBON DIOXIDE 29 mmol/L (22-30); CHLORIDE 105 mmol/L (98-107); GLUCOSE 132 mg/dL (75-110); PHOSPHORUS 3.8 mg/dL (2.5-4.5)
[2020-11-09] MEDS ORDERED: (PENDING PHARMACY ID) (Lisinopril/Hydrochlorothiazide [Lisinopril-Hctz 20-12.5 Mg Tab] 1 E PO SCH (10:00)
[2020-11-09] MEDS ORDERED: ENOXAPARIN SODIUM INJ 40 MG/0.4 ML DISP.SYRIN SUBCUT SCH (10:00)
[2020-11-09] MEDS: ACETAMINOPHEN 325 MG TABLET PO PRN ×2 (10:12→14:19)
[2020-11-09] MEDS: HYDROCHLOROTHIAZIDE 12.5 MG TABLET PO SCH (10:13)
[2020-11-09] MEDS: CHOLECALCIFEROL (D3) 1,000 UNIT (25 MCG) TABLET PO SCH (10:13)
[2020-11-09] MEDS: ASCORBIC ACID 500 MG TABLET PO SCH ×3 (10:13→17:11)
[2020-11-09] MEDS: VITAMIN B COMPLEX TABLET PO SCH (10:13)
[2020-11-09] MEDS: LISINOPRIL 10 MG TABLET PO SCH (10:13)
[2020-11-09] MEDS: ZINC SULFATE 220 MG CAPSULE PO SCH (10:13)
[2020-11-09] MEDS: METHYLPREDNISOLONE INJ 40 MG/1 ML SDV IV SCH ×2 (10:14→21:47)
[2020-11-09] MEDS: FAMOTIDINE INJ/PF 20 MG/2 ML SDV IV SCH ×2 (10:15→21:44)
[2020-11-09] MEDS: ENOXAPARIN SODIUM INJ 60 MG/0.6 ML DISP.SYRIN SUBCUT SCH ×2 (10:15→21:44)
--- NOTE | 2020-11-09 13:49 | PDOC PROGRESS REPORT ---
Subjective Subjective:: LISA CUTLER is a 45 year old male with past medical history significant for morbid obesity with BMI 40.7, hypertension, NISHA on CPAP who presents the ED with a 12-day history of progressive myalgias/generalized fatigue/shortness of breath/PACHECO. Patient was tested for COVID-19 on 11/04 he was positive. ED recommended admission and patient refused. He was sent home with dexamethasone, vitamins, and home oxygen orders. Patient was maintained on 4 L nasal cannula at home unfortunately his shortness of breath and PACHCEO progressively worsened and he returned to the ED where he was seen a second time and discharged home on azithromycin. Patient presented to the ED again today and is now agreeable to admission. Patient denies any fevers or significant cough. He denies any significant cardiac or lung disease history. He only smoked for a very brief period of time as a teenager and then quit. His only home medications are lisinopril/HCTZ combo pill and phentermine. Patient is admitted for standard Covid pneumonia monitoring and treatment per [facility] protocol as directed by the [facility]. All aspects of treatment plan discussed with patient and he states he is in full agreement with this. 11/09/2020 Patient seems to be notably improved today and seems to be more comfortable especially with regards to his breathing. Patient is already inquiring about going home but I cautioned him that we should monitor him for at least another day given that he went home twice previously with unfortunate results, later necessitating admission. Inflammatory markers are notably lower compared to previously drawn values last week. Patient seems rather adamant that he is leaving the hospital tomorrow and I suspect he could potentially leave AGAINST MEDICAL ADVICE. For now, he is agreeing to be monitored for another day. Reason For Visit: COVID-19 VIRUS PNEUMONIA Physical Exam Vital Signs: Temp Pulse Resp BP Pulse Ox 98.7 F 78 20 138/81 H 91 L 11/09/20 08:11 11/09/20 10:00 11/09/20 10:00 11/09/20 08:11 11/09/20 11:33 Intake & Output 11/08/20 11/09/20 11/10/20 06:59 06:59 06:59 Weight 133 kg Exam: General appearance: PRESENT: no acute distress, well-developed, well-nourished, morbidly obese white male with BMI 40.7, states his breathing is better today Head exam: PRESENT: atraumatic, normocephalic Eye exam: PRESENT: conjunctiva pink. ABSENT: scleral icterus Mouth exam: PRESENT: moist Respiratory exam: PRESENT: Very scant fine crackles bilateral lung madrigal otherwise clear ABSENT: rales, wheezes Cardiovascular exam: PRESENT: RRR. ABSENT: diastolic murmur, rubs, systolic murmur GI/Abdominal exam: PRESENT: normal bowel sounds, soft. ABSENT: distended, guarding, mass, organolmegaly, rebound, tenderness Neurological exam: PRESENT: alert, awake, oriented to person, oriented to place, oriented to time, oriented to situation Psychiatric exam: PRESENT: appropriate affect, normal mood Skin exam: PRESENT: dry, intact, warm Results Laboratory Results: 11/09/20 04:25 11/09/20 04:25 11/08/20 11/08/20 11/08/20 13:36 13:36 14:35 WBC 12.0 H RBC 4.77 Hgb 14.1 Hct 42.1 MCV 88 MCH 29.5 MCHC 33.4 RDW 13.3 Plt Count 440 Seg Neutrophils % 84.4 H Sodium 138.3 Potassium 4.1 Chloride 104 Carbon Dioxide 26 Anion Gap 8 BUN 14 Creatinine 0.82 Est GFR ( Amer) > 60 Glucose 129 H Calcium 8.9 Phosphorus Magnesium Ferritin Total Bilirubin 0.5 AST 57 Alkaline Phosphatase 72 C-Reactive Protein Total Protein 6.1 L Albumin 3.3 L Urine Color YELLOW Urine Appearance CLEAR Urine pH 8.0 Ur Specific [place] 1.015 Urine Protein NEGATIVE Urine Glucose (UA) NEGATIVE Urine Ketones NEGATIVE Urine Blood NEGATIVE Urine Nitrite NEGATIVE Ur Leukocyte Esterase NEGATIVE Urine WBC (Auto) 1 11/08/20 11/09/20 11/09/20 19:59 04:25 04:25 WBC 10.6 H RBC 4.96 Hgb 14.9 Hct 44.2 MCV 89 MCH 30.0 MCHC 33.6 RDW 13.4 Plt Count 425 Seg Neutrophils % 81.4 H Sodium 140.7 Potassium 4.0 Chloride 105 Carbon Dioxide 29 Anion Gap 7 BUN 16 Creatinine 0.82 Est GFR ( Amer) > 60 Glucose 132 H Calcium 8.8 Phosphorus 3.8 Magnesium 2.5 H Ferritin 989.00 H Total Bilirubin AST Alkaline Phosphatase C-Reactive Protein 24.4 H Total Protein Albumin Urine Color Urine Appearance Urine pH Ur Specific [place] Urine Protein Urine Glucose (UA) Urine Ketones Urine Blood Urine Nitrite Ur Leukocyte Esterase Urine WBC (Auto) Impressions: Chest X-Ray 11/08/20 13:20 IMPRESSION: MULTIFOCAL PNEUMONIA. NO SIGNIFICANT INTERVAL CHANGE. Assessment and Plan - Diagnosis (1) Pneumonia due to COVID-19 virus Is this a current diagnosis for this admission?: Yes (2) Acute hypoxemic respiratory failure Is this a current diagnosis for this admission?: Yes (3) Hypertension Qualifiers: Hypertension type: essential hypertension Qualified Code(s): I10 - Essential (primary) hypertension Is this a current diagnosis for this admission?: Yes (4) Morbid obesity with BMI of 40.0-44.9, adult Is this a current diagnosis for this admission?: Yes - Plan Summary Summary: (1) Pneumonia due to COVID-19 virus Is this a current diagnosis for this admission?: Yes Plan: -Symptoms/history consistent with covid-19 infection -Covid-19 test: 11/04 -CXR showed: Bilateral pneumonia consistent with COVID-19 -CTPA showed: Negative PE, bilateral pneumonia consistent with COVID-19 -standard of care vitamin supplements: zinc, ascorbic acid, vitamin d, melatonin -maintain magnesium of 2 mg/dL or higher -Current literature does not show clear benefit from the use of remdesivir or plaquenil; unclear benefit of convalescent plasma -supplemental oxygen and BiPAP/CPAP as needed; wean as able -prn combivent/nebs as able -do not hold anticoagulation unless actively bleeding or platelet count <50 -close monitoring for acute respiratory decline requiring ICU transfer and intubation -ivermectin 0.3mg/kg X5d as directed by [facility] protocol (2) Acute hypoxemic respiratory failure Is this a current diagnosis for this admission?: Yes Plan: Due to COVID-19 pneumonia Supplemental oxygen as needed to maintain saturation 92% or higher Treat underlying cause with above regimen CPAP nightly with supplemental oxygen for NISHA (3) Hypertension Qualifiers: Hypertension type: essential hypertension Qualified Code(s): I10 - Essential (primary) hypertension Is this a current diagnosis for this admission?: Yes Plan: Continue HCTZ/lisinopril combo Monitor blood pressure (4) Morbid obesity with BMI of 40.0-44.9, adult Is this a current diagnosis for this admission?: Yes Plan: Needs weight loss Hold phentermine - Time Time Spent with patient: 35 or more minutes Medications reviewed and adjusted accordingly: Yes Anticipated Discharge Disposition: Home, Self Care Anticipated Discharge Timeframe: within 48 hours - Inpatient Certification Based on my medical assessment, after consideration of the patient's comorbidities, presenting symptoms, or acuity I expect that the services needed warrant INPATIENT care.: Yes I certify that my determination is in accordance with my understanding of [facility]'s requirements for reasonable and necessary INPATIENT services [42 CFR 412.3e].: Yes Medical Necessity: Significant Comorbidiites Make Outpatient Treatment Too Risky, Need Close Monitoring Due to Risk of Patient Decompensation, Need for IV Antibiotics, Risk of Complication if Not Cared For in Hospital, Risk of Diagnosis Which Will Require Inpatient Eval/Care/Monitoring
[2020-11-09] MEDS: IVERMECTIN 3 MG TABLET PO SCH (17:11)
[2020-11-09] MEDS ORDERED: MELATONIN 5 MG TABLET PO PRN (23:14)
[2020-11-09] MEDS: GUAIFENESIN SYRP 200 MG/10 ML UDC PO PRN (23:21)
[2020-11-10] MEDS: GUAIFENESIN SYRP 200 MG/10 ML UDC PO PRN (03:29)
[2020-11-10 05:37] LABS: ANION GAP 7 (5-19); BLOOD UREA NITROGEN 18 mg/dL (7-20); CALCIUM 8.8 mg/dL (8.4-10.2); CARBON DIOXIDE 24 mmol/L (22-30); CHLORIDE 105 mmol/L (98-107); GLUCOSE 131 mg/dL (75-110); POTASSIUM 4.5 mmol/L (3.6-5.0)
[2020-11-10] MEDS: HYDROCHLOROTHIAZIDE 12.5 MG TABLET PO SCH (10:24)
[2020-11-10] MEDS: VITAMIN B COMPLEX TABLET PO SCH (10:24)
[2020-11-10] MEDS: ASCORBIC ACID 500 MG TABLET PO SCH ×3 (10:24→17:04)
[2020-11-10] MEDS: ZINC SULFATE 220 MG CAPSULE PO SCH (10:24)
[2020-11-10] MEDS: LISINOPRIL 10 MG TABLET PO SCH (10:24)
[2020-11-10] MEDS: FAMOTIDINE INJ/PF 20 MG/2 ML SDV IV SCH ×2 (10:25→22:14)
[2020-11-10] MEDS: ENOXAPARIN SODIUM INJ 60 MG/0.6 ML DISP.SYRIN SUBCUT SCH ×2 (10:25→22:13)
[2020-11-10] MEDS: CHOLECALCIFEROL (D3) 1,000 UNIT (25 MCG) TABLET PO SCH (10:25)
[2020-11-10] MEDS: METHYLPREDNISOLONE INJ 40 MG/1 ML SDV IV SCH ×2 (10:26→22:14)
--- NOTE | 2020-11-10 15:24 | PDOC PROGRESS REPORT ---
Subjective Subjective:: LISA CUTELR is a 45 year old male with past medical history significant for morbid obesity with BMI 40.7, hypertension, NISHA on CPAP who presents the ED with a 12-day history of progressive myalgias/generalized fatigue/shortness of breath/PACHECO. Patient was tested for COVID-19 on 11/04 he was positive. ED recommended admission and patient refused. He was sent home with dexamethasone, vitamins, and home oxygen orders. Patient was maintained on 4 L nasal cannula at home unfortunately his shortness of breath and PACHECO progressively worsened and he returned to the ED where he was seen a second time and discharged home on azithromycin. Patient presented to the ED again today and is now agreeable to admission. Patient denies any fevers or significant cough. He denies any significant cardiac or lung disease history. He only smoked for a very brief period of time as a teenager and then quit. His only home medications are lisinopril/HCTZ combo pill and phentermine. Patient is admitted for standard Covid pneumonia monitoring and treatment per [facility] protocol as directed by the [facility]. All aspects of treatment plan discussed with patient and he states he is in full agreement with this. 11/09/2020 Patient seems to be notably improved today and seems to be more comfortable especially with regards to his breathing. Patient is already inquiring about going home but I cautioned him that we should monitor him for at least another day given that he went home twice previously with unfortunate results, later necessitating admission. Inflammatory markers are notably lower compared to previously drawn values last week. Patient seems rather adamant that he is leaving the hospital tomorrow and I suspect he could potentially leave AGAINST MEDICAL ADVICE. For now, he is agreeing to be monitored for another day. 11/10 Patient breathing seems to be a bit worse today. His oxygen supplementation has required escalation up to 6.5 L nasal cannula. He is continued on standard Covid treatment. We will recheck his inflammatory markers tomorrow to help gauge his progress. I am concerned that the patient waited a bit too long before allowing admission to the hospital for complete treatment of his COVID-19 pneumonia. We will continue with aggressive treatment and working towards turning around his inflammatory cascade and seems to be severe now. Reason For Visit: COVID-19 VIRUS PNEUMONIA Physical Exam Vital Signs: Temp Pulse Resp BP Pulse Ox 98.3 F 94 20 115/76 93 11/10/20 11:55 11/10/20 11:55 11/10/20 11:55 11/10/20 11:55 11/10/20 11:55 Intake & Output 11/09/20 11/10/20 11/11/20 06:59 06:59 06:59 Intake Total 1371 Balance 1371 Weight 133 kg 131.2 kg Exam: General appearance: PRESENT: no acute distress, well-developed, well-nourished, morbidly obese white male with BMI 40.7, states his breathing is notably worse today Head exam: PRESENT: atraumatic, normocephalic Eye exam: PRESENT: conjunctiva pink. ABSENT: scleral icterus Mouth exam: PRESENT: moist Respiratory exam: PRESENT: Very scant fine crackles bilateral lung madrigal otherwise clear ABSENT: rales, wheezes Cardiovascular exam: PRESENT: RRR. ABSENT: diastolic murmur, rubs, systolic murmur GI/Abdominal exam: PRESENT: normal bowel sounds, soft. ABSENT: distended, guarding, mass, organolmegaly, rebound, tenderness Neurological exam: PRESENT: alert, awake, oriented to person, oriented to place, oriented to time, oriented to situation Psychiatric exam: PRESENT: appropriate affect, normal mood Skin exam: PRESENT: dry, intact, warm Results Laboratory Results: 11/09/20 04:25 11/10/20 04:39 11/10/20 04:39 Sodium 136.4 L Potassium 4.5 Chloride 105 Carbon Dioxide 24 Anion Gap 7 BUN 18 Creatinine 0.71 Est GFR ( Amer) > 60 Glucose 131 H Calcium 8.8 Impressions: Chest X-Ray 11/08/20 13:20 IMPRESSION: MULTIFOCAL PNEUMONIA. NO SIGNIFICANT INTERVAL CHANGE. Assessment and Plan - Diagnosis (1) Pneumonia due to COVID-19 virus Is this a current diagnosis for this admission?: Yes (2) Acute hypoxemic respiratory failure Is this a current diagnosis for this admission?: Yes (3) Hypertension Qualifiers: Hypertension type: essential hypertension Qualified Code(s): I10 - Essential (primary) hypertension Is this a current diagnosis for this admission?: Yes (4) Morbid obesity with BMI of 40.0-44.9, adult Is this a current diagnosis for this admission?: Yes - Plan Summary Summary: (1) Pneumonia due to COVID-19 virus Is this a current diagnosis for this admission?: Yes Plan: -Symptoms/history consistent with covid-19 infection -Covid-19 test: 11/04 -CXR showed: Bilateral pneumonia consistent with COVID-19 -CTPA showed: Negative PE, bilateral pneumonia consistent with COVID-19 -standard of care vitamin supplements: zinc, ascorbic acid, vitamin d, melatonin -maintain magnesium of 2 mg/dL or higher -Current literature does not show clear benefit from the use of remdesivir or plaquenil; unclear benefit of convalescent plasma -supplemental oxygen and BiPAP/CPAP as needed; wean as able -prn combivent/nebs as able -do not hold anticoagulation unless actively bleeding or platelet count <50 -close monitoring for acute respiratory decline requiring ICU transfer and intubation -ivermectin 0.3mg/kg X5d as directed by [facility] protocol Worsened oxygen requirements on 11/10 (2) Acute hypoxemic respiratory failure Is this a current diagnosis for this admission?: Yes Plan: Due to COVID-19 pneumonia Supplemental oxygen as needed to maintain saturation 92% or higher Treat underlying cause with above regimen CPAP nightly with supplemental oxygen for NISHA (3) Hypertension Qualifiers: Hypertension type: essential hypertension Qualified Code(s): I10 - Essential (primary) hypertension Is this a current diagnosis for this admission?: Yes Plan: Continue HCTZ/lisinopril combo Monitor blood pressure (4) Morbid obesity with BMI of 40.0-44.9, adult Is this a current diagnosis for this admission?: Yes Plan: Needs weight loss Hold phentermine - Time Time Spent with patient: 35 or more minutes Medications reviewed and adjusted accordingly: Yes Anticipated Discharge Disposition: Home, Self Care Anticipated Discharge Timeframe: within 72 hours - Inpatient Certification Based on my medical assessment, after consideration of the patient's comorbidities, presenting symptoms, or acuity I expect that the services needed warrant INPATIENT care.: Yes I certify that my determination is in accordance with my understanding of Medicare's requirements for reasonable and necessary INPATIENT services [42 CFR 412.3e].: Yes Medical Necessity: Significant Comorbidiites Make Outpatient Treatment Too Risky, Need Close Monitoring Due to Risk of Patient Decompensation, Need for IV Antibiotics, Risk of Complication if Not Cared For in Hospital, Risk of Diagnosis Which Will Require Inpatient Eval/Care/Monitoring
[2020-11-10] MEDS: IVERMECTIN 3 MG TABLET PO SCH (17:04)
[2020-11-10] MEDS: IPRATROPIUM/ALBUTEROL 0.5-2.5 MG/3 ML AMPUL NEB PRN (21:40)
[2020-11-10] MEDS: MELATONIN 5 MG TABLET PO PRN (22:13)
[2020-11-11 05:08] LABS: HEMATOCRIT 42.7 % (37.9-51.0); HEMOGLOBIN 14.4 g/dL (13.5-17.0); MEAN CORPUSCULAR HEMOGLOBIN 29.7 pg (27.0-33.4); MEAN CORPUSCULAR HGB CONC 33.6 g/dL (32.0-36.0); MEAN CORPUSCULAR VOLUME 88 fl (80-97); RED BLOOD COUNT 4.83 10^6/uL (4.35-5.55); RED CELL DISTRIBUTION WIDTH 13.1 % (11.5-14.0); WHITE BLOOD COUNT 13.5 10^3/uL (4.0-10.5)
[2020-11-11 05:27] LABS: ANION GAP 10 (5-19); BLOOD UREA NITROGEN 18 mg/dL (7-20); CARBON DIOXIDE 23 mmol/L (22-30); CHLORIDE 105 mmol/L (98-107); GLUCOSE 149 mg/dL (75-110); POTASSIUM 4.7 mmol/L (3.6-5.0)
[2020-11-11 05:45] LABS: ABSOLUTE LYMPHOCYTES# (MANUAL) 2.3 10^3/uL (0.5-4.7); ABSOLUTE MONOCYTES # (MANUAL) 0.7 10^3/uL (0.1-1.4); BASOPHILS % (MANUAL) 0 % (0-2); EOSINOPHILS % (MANUAL) 0 % (0-6); LYMPHOCYTES % (MANUAL) 17 % (13-45); MONOCYTES % (MANUAL) 5 % (3-13); PLATELET CLUMPS PRESENT; PLATELET COMMENT ADEQUATE; SEGMENTED NEUTROPHILS % (MAN) 78 % (42-78); TOTAL CELLS COUNTED 100
[2020-11-11 05:46] LABS: PLATELET COUNT 543 10^3/uL (150-450)
[2020-11-11] MEDS: IPRATROPIUM/ALBUTEROL 0.5-2.5 MG/3 ML AMPUL NEB PRN ×3 (09:50→21:23)
[2020-11-11] MEDS: LISINOPRIL 10 MG TABLET PO SCH (10:17)
[2020-11-11] MEDS: VITAMIN B COMPLEX TABLET PO SCH (10:17)
[2020-11-11] MEDS: ASCORBIC ACID 500 MG TABLET PO SCH ×3 (10:18→17:21)
[2020-11-11] MEDS: CHOLECALCIFEROL (D3) 1,000 UNIT (25 MCG) TABLET PO SCH (10:18)
[2020-11-11] MEDS: HYDROCHLOROTHIAZIDE 12.5 MG TABLET PO SCH (10:18)
[2020-11-11] MEDS: ZINC SULFATE 220 MG CAPSULE PO SCH (10:18)
[2020-11-11] MEDS: FAMOTIDINE INJ/PF 20 MG/2 ML SDV IV SCH ×2 (10:19→22:27)
[2020-11-11] MEDS: ENOXAPARIN SODIUM INJ 60 MG/0.6 ML DISP.SYRIN SUBCUT SCH ×2 (10:19→22:26)
[2020-11-11] MEDS: METHYLPREDNISOLONE INJ 40 MG/1 ML SDV IV SCH ×2 (10:19→22:27)
--- NOTE | 2020-11-11 16:43 | PDOC PROGRESS REPORT ---
Subjective Subjective:: LISA CUTLER is a 45 year old male with past medical history significant for morbid obesity with BMI 40.7, hypertension, NISHA on CPAP who presents the ED with a 12-day history of progressive myalgias/generalized fatigue/shortness of breath/PACHECO. Patient was tested for COVID-19 on 11/04 he was positive. ED recommended admission and patient refused. He was sent home with dexamethasone, vitamins, and home oxygen orders. Patient was maintained on 4 L nasal cannula at home unfortunately his shortness of breath and PACHECO progressively worsened and he returned to the ED where he was seen a second time and discharged home on azithromycin. Patient presented to the ED again today and is now agreeable to admission. Patient denies any fevers or significant cough. He denies any significant cardiac or lung disease history. He only smoked for a very brief period of time as a teenager and then quit. His only home medications are lisinopril/HCTZ combo pill and phentermine. Patient is admitted for standard Covid pneumonia monitoring and treatment per [facility] protocol as directed by the [facility]. All aspects of treatment plan discussed with patient and he states he is in full agreement with this. 11/09/2020 Patient seems to be notably improved today and seems to be more comfortable especially with regards to his breathing. Patient is already inquiring about going home but I cautioned him that we should monitor him for at least another day given that he went home twice previously with unfortunate results, later necessitating admission. Inflammatory markers are notably lower compared to previously drawn values last week. Patient seems rather adamant that he is leaving the hospital tomorrow and I suspect he could potentially leave AGAINST MEDICAL ADVICE. For now, he is agreeing to be monitored for another day. 11/10 Patient breathing seems to be a bit worse today. His oxygen supplementation has required escalation up to 6.5 L nasal cannula. He is continued on standard Covid treatment. We will recheck his inflammatory markers tomorrow to help gauge his progress. I am concerned that the patient waited a bit too long before allowing admission to the hospital for complete treatment of his COVID-19 pneumonia. We will continue with aggressive treatment and working towards turning around his inflammatory cascade and seems to be severe now. 11/11 Patient's breathing at the same today. His oxygen requirements are only very slightly lower and he is otherwise not improved clinically very much. He states he does feel better and has been more energy and is asking about going home. I do not believe he will be able to safely transition home at least for another 1 to 2 days. His D-dimer and ferritin are lower than it shows we are effectively reducing the severity of his inflammatory response to COVID-19. We will continue weaning his oxygen as able. For now, he is very slow to improve in this aspect. Reason For Visit: COVID-19 VIRUS PNEUMONIA Physical Exam Vital Signs: Temp Pulse Resp BP Pulse Ox 97.7 F 86 18 126/81 H 95 11/11/20 10:00 11/11/20 08:09 11/11/20 08:09 11/11/20 08:09 11/11/20 08:09 Intake & Output 11/10/20 11/11/20 11/12/20 06:59 06:59 06:59 Intake Total 1371 1225 840 Balance 1371 1225 840 Weight 131.2 kg 129.8 kg Exam: General appearance: PRESENT: no acute distress, well-developed, well-nourished, morbidly obese white male with BMI 40.7, states he is still rather short of breath but feels a bit better Head exam: PRESENT: atraumatic, normocephalic Eye exam: PRESENT: conjunctiva pink. ABSENT: scleral icterus Mouth exam: PRESENT: moist Respiratory exam: PRESENT: Very scant fine crackles bilateral lung madrigal otherwise clear ABSENT: rales, wheezes Cardiovascular exam: PRESENT: RRR. ABSENT: diastolic murmur, rubs, systolic murmur GI/Abdominal exam: PRESENT: normal bowel sounds, soft. ABSENT: distended, guarding, mass, organolmegaly, rebound, tenderness Neurological exam: PRESENT: alert, awake, oriented to person, oriented to place, oriented to time, oriented to situation Psychiatric exam: PRESENT: appropriate affect, normal mood Skin exam: PRESENT: dry, intact, warm Results Laboratory Results: 11/11/20 04:36 11/11/20 04:36 11/10/20 11/11/20 11/11/20 19:38 04:36 04:36 WBC 13.5 H RBC 4.83 Hgb 14.4 Hct 42.7 MCV 88 MCH 29.7 MCHC 33.6 RDW 13.1 Plt Count 543 H Seg Neutrophils % Not Reportable Sodium 137.5 Potassium 4.7 Chloride 105 Carbon Dioxide 23 Anion Gap 10 BUN 18 Creatinine 0.74 Est GFR ( Amer) > 60 Glucose 149 H Calcium 9.0 Ferritin 948.00 H Impressions: Chest X-Ray 11/08/20 13:20 IMPRESSION: MULTIFOCAL PNEUMONIA. NO SIGNIFICANT INTERVAL CHANGE. Assessment and Plan - Diagnosis (1) Pneumonia due to COVID-19 virus Is this a current diagnosis for this admission?: Yes (2) Acute hypoxemic respiratory failure Is this a current diagnosis for this admission?: Yes (3) Hypertension Qualifiers: Hypertension type: essential hypertension Qualified Code(s): I10 - Essential (primary) hypertension Is this a current diagnosis for this admission?: Yes (4) Morbid obesity with BMI of 40.0-44.9, adult Is this a current diagnosis for this admission?: Yes (5) Cutaneous candidiasis Is this a current diagnosis for this admission?: Yes - Plan Summary Summary: (1) Pneumonia due to COVID-19 virus Is this a current diagnosis for this admission?: Yes Plan: -Symptoms/history consistent with covid-19 infection -Covid-19 test: 11/04 -CXR showed: Bilateral pneumonia consistent with COVID-19 -CTPA showed: Negative PE, bilateral pneumonia consistent with COVID-19 -standard of care vitamin supplements: zinc, ascorbic acid, vitamin d, melatonin -maintain magnesium of 2 mg/dL or higher -Current literature does not show clear benefit from the use of remdesivir or plaquenil; unclear benefit of convalescent plasma -supplemental oxygen and BiPAP/CPAP as needed; wean as able -prn combivent/nebs as able -do not hold anticoagulation unless actively bleeding or platelet count <50 -close monitoring for acute respiratory decline requiring ICU transfer and intubation -ivermectin 0.3mg/kg X5d as directed by [facility] protocol Worsened oxygen requirements on 11/10 Very slow to improve, weaning oxygen as shown to be very difficult without experiencing severe oxygen desaturation (2) Acute hypoxemic respiratory failure Is this a current diagnosis for this admission?: Yes Plan: Due to COVID-19 pneumonia Supplemental oxygen as needed to maintain saturation 92% or higher Treat underlying cause with above regimen CPAP nightly with supplemental oxygen for NISHA (3) Hypertension Qualifiers: Hypertension type: essential hypertension Qualified Code(s): I10 - Essential (primary) hypertension Is this a current diagnosis for this admission?: Yes Plan: Continue HCTZ/lisinopril combo Monitor blood pressure (4) Morbid obesity with BMI of 40.0-44.9, adult Is this a current diagnosis for this admission?: Yes Plan: Needs weight loss Hold phentermine Cutaneous candidiasis Fluconazole 150 mg once, can continue weekly if persistent Nystatin powder - Time Time Spent with patient: 35 or more minutes Medications reviewed and adjusted accordingly: Yes Anticipated Discharge Disposition: Home, Self Care Anticipated Discharge Timeframe: within 72 hours - Inpatient Certification Based on my medical assessment, after consideration of the patient's comorbidities, presenting symptoms, or acuity I expect that the services needed warrant INPATIENT care.: Yes I certify that my determination is in accordance with my understanding of [facility]'s requirements for reasonable and necessary INPATIENT services [42 CFR 412.3e].: Yes Medical Necessity: Significant Comorbidiites Make Outpatient Treatment Too Risky, Need Close Monitoring Due to Risk of Patient Decompensation
[2020-11-11] MEDS: IVERMECTIN 3 MG TABLET PO SCH (17:21)
[2020-11-11] MEDS: NYSTATIN TOPICAL POWDER 15 GM TP SCH (17:22)
[2020-11-11] MEDS: ACETAMINOPHEN 325 MG TABLET PO PRN (17:39)
[2020-11-11] MEDS: MELATONIN 5 MG TABLET PO PRN (22:26)
[2020-11-11] MEDS: GUAIFENESIN SYRP 200 MG/10 ML UDC PO PRN (22:26)
[2020-11-12 05:09] LABS: HEMATOCRIT 40.8 % (37.9-51.0); HEMOGLOBIN 13.8 g/dL (13.5-17.0); MEAN CORPUSCULAR HEMOGLOBIN 29.7 pg (27.0-33.4); MEAN CORPUSCULAR HGB CONC 33.9 g/dL (32.0-36.0); MEAN CORPUSCULAR VOLUME 88 fl (80-97); RED BLOOD COUNT 4.65 10^6/uL (4.35-5.55); WHITE BLOOD COUNT 13.3 10^3/uL (4.0-10.5)
[2020-11-12 05:23] LABS: ANION GAP 8 (5-19); BLOOD UREA NITROGEN 19 mg/dL (7-20); C-REACTIVE PROTEIN 19.9 mg/L (<10.0); CARBON DIOXIDE 23 mmol/L (22-30); CHLORIDE 104 mmol/L (98-107); GLUCOSE 163 mg/dL (75-110); POTASSIUM 4.9 mmol/L (3.6-5.0)
[2020-11-12 05:35] LABS: ABSOLUTE LYMPHOCYTES# (MANUAL) 0.8 10^3/uL (0.5-4.7); ABSOLUTE MONOCYTES # (MANUAL) 0.4 10^3/uL (0.1-1.4); BAND NEUTROPHILS % (MANUAL) 1 % (3-5); BASOPHILS % (MANUAL) 0 % (0-2); EOSINOPHILS % (MANUAL) 2 % (0-6); LYMPHOCYTES % (MANUAL) 6 % (13-45); MONOCYTES % (MANUAL) 3 % (3-13); PLATELET CLUMPS PRESENT; PLATELET COMMENT ADEQUATE; SEGMENTED NEUTROPHILS % (MAN) 88 % (42-78); TOTAL CELLS COUNTED 100
[2020-11-12 05:36] LABS: PLATELET COUNT 546 10^3/uL (150-450)
[2020-11-12] MEDS: IPRATROPIUM/ALBUTEROL 0.5-2.5 MG/3 ML AMPUL NEB PRN ×2 (08:03→12:20)
[2020-11-12] MEDS: ENOXAPARIN SODIUM INJ 60 MG/0.6 ML DISP.SYRIN SUBCUT SCH (09:20)
[2020-11-12] MEDS: HYDROCHLOROTHIAZIDE 12.5 MG TABLET PO SCH (09:21)
[2020-11-12] MEDS: FAMOTIDINE INJ/PF 20 MG/2 ML SDV IV SCH (09:21)
[2020-11-12] MEDS: LISINOPRIL 10 MG TABLET PO SCH (09:21)
[2020-11-12] MEDS: VITAMIN B COMPLEX TABLET PO SCH (09:21)
[2020-11-12] MEDS: ASCORBIC ACID 500 MG TABLET PO SCH ×3 (09:21→17:09)
[2020-11-12] MEDS: METHYLPREDNISOLONE INJ 40 MG/1 ML SDV IV SCH (09:21)
[2020-11-12] MEDS: ZINC SULFATE 220 MG CAPSULE PO SCH (09:21)
[2020-11-12] MEDS: CHOLECALCIFEROL (D3) 1,000 UNIT (25 MCG) TABLET PO SCH (09:22)
[2020-11-12] MEDS: NYSTATIN TOPICAL POWDER 15 GM TP SCH ×2 (09:22→17:09)
[2020-11-12 16:43] VITALS: BP 126/74
--- NOTE | 2020-11-12 18:12 | PDOC DISCHARGE SUMMARY ---
Impression - Admit/DC Date/PCP Admission Date/Primary Care Provider: 11/08/20 15:26 ABRAHAN DIALLO MD Discharge Date: 11/12/20 - Discharge Diagnosis (1) Pneumonia due to COVID-19 virus Is this a current diagnosis for this admission?: Yes (2) Acute hypoxemic respiratory failure Is this a current diagnosis for this admission?: Yes (3) Hypertension Is this a current diagnosis for this admission?: Yes (4) Morbid obesity with BMI of 40.0-44.9, adult Is this a current diagnosis for this admission?: Yes (5) Cutaneous candidiasis Is this a current diagnosis for this admission?: Yes - Assessment Summary: LISA CUTLER is a 45 year old male with past medical history significant for morbid obesity with BMI 40.7, hypertension, NISHA on CPAP who presents the ED with a 12-day history of progressive myalgias/generalized fatigue/shortness of breath/PACHECO. Patient was tested for COVID-19 on 11/04 he was positive. ED recommended admission and patient refused. He was sent home with dexamethasone, vitamins, and home oxygen orders. Patient was maintained on 4 L nasal cannula at home unfortunately his shortness of breath and PACHECO progressively worsened and he returned to the ED where he was seen a second time and discharged home on azithromycin. Patient presented to the ED again today and is now agreeable to admission. Patient denies any fevers or significant cough. He denies any significant cardiac or lung disease history. He only smoked for a very brief period of time as a teenager and then quit. His only home medications are lisinopril/HCTZ combo pill and phentermine. Patient is admitted for standard Covid pneumonia monitoring and treatment per [facility] protocol as directed by the [facility]. All aspects of treatment plan discussed with patient and he states he is in full agreement with this. 11/09/2020 Patient seems to be notably improved today and seems to be more comfortable especially with regards to his breathing. Patient is already inquiring about going home but I cautioned him that we should monitor him for at least another day given that he went home twice previously with unfortunate results, later necessitating admission. Inflammatory markers are notably lower compared to previously drawn values last week. Patient seems rather adamant that he is leaving the hospital tomorrow and I suspect he could potentially leave AGAINST MEDICAL ADVICE. For now, he is agreeing to be monitored for another day. 11/10 Patient breathing seems to be a bit worse today. His oxygen supplementation has required escalation up to 6.5 L nasal cannula. He is continued on standard Covi d treatment. We will recheck his inflammatory markers tomorrow to help gauge his progress. I am concerned that the patient waited a bit too long before allowing admission to the hospital for complete treatment of his COVID-19 pneumonia. We will continue with aggressive treatment and working towards turning around his inflammatory cascade and seems to be severe now. 11/11 Patient's breathing at the same today. His oxygen requirements are only very slightly lower and he is otherwise not improved clinically very much. He states he does feel better and has been more energy and is asking about going home. I do not believe he will be able to safely transition home at least for another 1 to 2 days. His D-dimer and ferritin are lower than it shows we are effectively reducing the severity of his inflammatory response to COVID-19. We will continue weaning his oxygen as able. For now, he is very slow to improve in this aspect. Significant improvement on day of discharge. Patient only requiring 1 to 2 L nasal cannula submental oxygen to maintain saturations in the mid 90s. Patient very much wanted to go home in agreement with the plan. (1) Pneumonia due to COVID-19 virusresolving Is this a current diagnosis for this admission?: Yes Plan: -Symptoms/history consistent with covid-19 infection -Covid-19 test: 11/04 -CXR showed: Bilateral pneumonia consistent with COVID-19 -CTPA showed: Negative PE, bilateral pneumonia consistent with COVID-19 -standard of care vitamin supplements: zinc, ascorbic acid, vitamin d, melatonin -maintain magnesium of 2 mg/dL or higher -Current literature does not show clear benefit from the use of remdesivir or plaquenil; unclear benefit of convalescent plasma -supplemental oxygen and BiPAP/CPAP as needed; wean as able -prn combivent/nebs as able -do not hold anticoagulation unless actively bleeding or platelet count <50 -close monitoring for acute respiratory decline requiring ICU transfer and intubation -ivermectin 0.3mg/kg X5d as directed by [facility] protocolcompleted inpatient Worsened oxygen requirements on 11/10 Significant improvement in oxygen saturation and supplemental oxygen requirements; requiring 1 to 2 L nasal cannula to maintain saturations in the 90s at discharge Submental oxygen for home ordered Nebulizer and duo nebs ordered at discharge Half dose Eliquis for 4 weeks at discharge Prednisone taper at discharge Long discussion with the patient and his . All in agreement with plan and agree with discharge. Patient and will bring patient back to the hospital with any worsening in his respiratory status. (2) Acute hypoxemic respiratory failureimproved Is this a current diagnosis for this admission?: Yes Plan: Due to COVID-19 pneumonia Supplemental oxygen as needed to maintain saturation 92% or higher Treat underlying cause with above regimen CPAP nightly with supplemental oxygen for NISHA (3) Hypertensioncontrolled Qualifiers: Hypertension type: essential hypertension Qualified Code(s): I10 - Essential (primary) hypertension Is this a current diagnosis for this admission?: Yes Plan: Continue HCTZ/lisinopril combo Monitor blood pressure (4) Morbid obesity with BMI of 40.0-44.9, adult Is this a current diagnosis for this admission?: Yes Plan: Needs weight loss Hold phentermine Cutaneous candidiasis Fluconazole 150 mg IV once, can continue weekly if persistent; defer to PCP if repeat doses are needed Nystatin powder - Additional Information Resuscitation Status: Full Code Discharge Diet: As Tolerated, Regular Discharge Activity: Activity As Tolerated, Balance Activity w/Rest Referrals: ABRAHAN DIALLO MD [Primary Care Provider] - 11/22/20 10:00 am Prescriptions: Prednisone [Deltasone 20 mg Tablet] 20 mg PO ASDIR 10 Days #8 tablet Ipratropium/Albuterol Sulfate [Duoneb 3 ml Ampul] 3 ml NEB [id number] #28 vial.neb Apixaban [Eliquis 2.5 mg Tablet] 2.5 mg PO BID 28 Days #56 tablet Nystatin [Mycostatin Topical Powder 15 gm] 1 applic TP BID #1 bottle Home Medications: Albuterol Sulfate [Albuterol Sulfate Hfa] 2 puff IH TID #1 hfa.[id number] 11/04/20 Cholecalciferol (Vitamin D3) [Vitamin D3 400 Unit Tablet] 800 unit PO DAILY #30 tablet 11/04/20 Lisinopril/Hydrochlorothiazide [Lisinopril-Hctz 20-12.5 mg Tab] 1 each PO DAILY 11/04/20 Zinc [Zinc Chelated] 50 mg PO DAILY #14 tablet 11/04/20 Famotidine [Pepcid 20 mg Tablet] 20 mg PO BID #12 tablet 11/06/20 Melatonin 20 mg PO QHS 11/10/20 Apixaban [Eliquis 2.5 mg Tablet] 2.5 mg PO BID 28 Days #56 tablet 11/12/20 Ipratropium/Albuterol Sulfate [Duoneb 3 ml Ampul] 3 ml [facility] [id number] #28 vial.[facility] 11/12/20 Nystatin [Mycostatin Topical Powder 15 gm] 1 applic TP BID #1 bottle 11/12/20 Prednisone [Deltasone 20 mg Tablet] 20 mg PO ASDIR 10 Days #8 tablet 11/12/20 History of Present Illiness History of Present Illness: LISA CUTLER is a 45 year old male with past medical history significant for morbid obesity with BMI 40.7, hypertension, NISHA on CPAP who presents the ED with a 12-day history of progressive myalgias/generalized fatigue/shortness of breath/PACHECO. Patient was tested for COVID-19 on 11/04 he was positive. ED recommended admission and patient refused. He was sent home with dexamethasone, vitamins, and home oxygen orders. Patient was maintained on 4 L nasal cannula at home unfortunately his shortness of breath and PACHECO progressively worsened and he returned to the ED where he was seen a second time and discharged home on azithromycin. Patient presented to the ED again today and is now agreeable to admission. Patient denies any fevers or significant cough. He denies any significant cardiac or lung disease history. He only smoked for a very brief period of time as a teenager and then quit. His only home medications are lisinopril/HCTZ combo pill and phentermine. Patient is admitted for standard Covid pneumonia monitoring and treatment per [facility] protocol as directed by the [facility]. All aspects of treatment plan discussed with patient and he states he is in full agreement with this. Physical Exam Vital Signs: Temp Pulse Resp BP Pulse Ox 97.8 F 98 20 126/74 H 95 11/12/20 16:59 11/12/20 16:59 11/12/20 16:59 11/12/20 15:48 11/12/20 16:59 Intake & Output 11/11/20 11/12/20 11/13/20 06:59 06:59 06:59 Intake Total 1225 1565 540 Balance 1225 1560 540 Weight 129.8 kg 129.3 kg Exam: General appearance: PRESENT: no acute distress, well-developed, well-nourished, morbidly obese white male with BMI 40.7, states he feels much better today and would like to go home Head exam: PRESENT: atraumatic, normocephalic Eye exam: PRESENT: conjunctiva pink. ABSENT: scleral icterus Mouth exam: PRESENT: moist Respiratory exam: PRESENT: CTA B ABSENT: rales, wheezes Cardiovascular exam: PRESENT: RRR. ABSENT: diastolic murmur, rubs, systolic murmur GI/Abdominal exam: PRESENT: normal bowel sounds, soft. ABSENT: distended, guarding, mass, organolmegaly, rebound, tenderness Neurological exam: PRESENT: alert, awake, oriented to person, oriented to place, oriented to time, oriented to situation Psychiatric exam: PRESENT: appropriate affect, normal mood Skin exam: PRESENT: dry, intact, warm Results Laboratory Results: WBC 13.3 10^3/uL (4.0-10.5) H 11/12/20 04:46 RBC 4.65 10^6/uL (4.35-5.55) 11/12/20 04:46 Hgb 13.8 g/dL (13.5-17.0) 11/12/20 04:46 Hct 40.8 % (37.9-51.0) 11/12/20 04:46 MCV 88 fl (80-97) 11/12/20 04:46 MCH 29.7 pg (27.0-33.4) 11/12/20 04:46 MCHC 33.9 g/dL (32.0-36.0) 11/12/20 04:46 RDW 13.0 % (11.5-14.0) 11/12/20 04:46 Plt Count 546 10^3/uL (150-450) H 11/12/20 04:46 Lymph % (Auto) Not Reportable 11/12/20 04:46 Lander % (Auto) Not Reportable 11/12/20 04:46 Eos % (Auto) Not Reportable 11/12/20 04:46 Baso % (Auto) Not Reportable 11/12/20 04:46 Absolute Neuts (auto) Not Reportable 11/12/20 04:46 Absolute Lymphs (auto) Not Reportable 11/12/20 04:46 Absolute Monos (auto) Not Reportable 11/12/20 04:46 Absolute Eos (auto) Not Reportable 11/12/20 04:46 Absolute Basos (auto) Not Reportable 11/12/20 04:46 Total Counted 100 11/12/20 04:46 Seg Neutrophils % Not Reportable 11/12/20 04:46 Seg Neuts % (Manual) 88 % (42-78) H 11/12/20 04:46 Band Neutrophils % 1 % (3-5) L 11/12/20 04:46 Lymphocytes % (Manual) 6 % (13-45) L 11/12/20 04:46 Monocytes % (Manual) 3 % (3-13) 11/12/20 04:46 Eosinophils % (Manual) 2 % (0-6) 11/12/20 04:46 Basophils % (Manual) 0 % (0-2) 11/12/20 04:46 Abs Neuts (Manual) 11.8 10^3/uL (1.7-8.2) H 11/12/20 04:46 Abs Lymphs (Manual) 0.8 10^3/uL (0.5-4.7) 11/12/20 04:46 Abs Monocytes (Manual) 0.4 10^3/uL (0.1-1.4) 11/12/20 04:46 Absolute Eos (Manual) 0.3 10^3/uL (0.0-0.6) 11/12/20 04:46 Abs Basophils (Manual) 0.0 10^3/uL (0.0-0.2) 11/12/20 04:46 Clumped Platelets PRESENT 11/12/20 04:46 Platelet Comment ADEQUATE 11/12/20 04:46 D-Dimer 0.77 ug/mL (0.00-0.50) H 11/12/20 04:46 Sodium 135.3 mmol/L (137-145) L 11/12/20 04:46 Potassium 4.9 mmol/L (3.6-5.0) 11/12/20 04:46 Chloride 104 mmol/L (98-107) 11/12/20 04:46 Carbon Dioxide 23 mmol/L (22-30) 11/12/20 04:46 Anion Gap 8 (5-19) 11/12/20 04:46 BUN 19 mg/dL (7-20) 11/12/20 04:46 Creatinine 0.74 mg/dL (0.52-1.25) 11/12/20 04:46 Est GFR ( Amer) > 60 (>60) 11/12/20 04:46 Est GFR (MDRD) Non-Af > 60 (>60) 11/12/20 04:46 Glucose 163 mg/dL (75-110) H 11/12/20 04:46 Hemoglobin A1c % 5.0 % (4.7-6.0) 11/09/20 04:25 Calcium 9.0 mg/dL (8.4-10.2) 11/12/20 04:46 Phosphorus 3.8 mg/dL (2.5-4.5) 11/09/20 04:25 Magnesium 2.5 mg/dL (1.6-2.3) H 11/09/20 04:25 Total Bilirubin 0.5 mg/dL (0.2-1.3) 11/08/20 13:36 Ferritin 1020.00 ng/mL (17.9-464.0) H 11/12/20 04:46 Direct Bilirubin 0.2 mg/dL (0.0-0.4) 11/08/20 13:36 Neonat Total Bilirubin Not Reportable 11/08/20 13:36 Neonat Direct Bilirubin Not Reportable 11/08/20 13:36 Neonat Indirect Bili Not Reportable 11/08/20 13:36 AST 57 U/L (17-59) 11/08/20 13:36 ALT 125 U/L (<50) H 11/08/20 13:36 Alkaline Phosphatase 72 U/L (38-126) 11/08/20 13:36 C-Reactive Protein 19.9 mg/L (<10.0) H 11/12/20 04:46 Total Protein 6.1 g/dL (6.3-8.2) L 11/08/20 13:36 Albumin 3.3 g/dL (3.5-5.0) L 11/08/20 13:36 Urine Color YELLOW 11/08/20 14:35 Urine Appearance CLEAR 11/08/20 14:35 Urine pH 8.0 (5.0-9.0) 11/08/20 14:35 Ur Specific [place] 1.015 11/08/20 14:35 Urine Protein NEGATIVE mg/dL (NEGATIVE) 11/08/20 14:35 Urine Glucose (UA) NEGATIVE mg/dL (NEGATIVE) 11/08/20 14:35 Urine Ketones NEGATIVE mg/dL (NEGATIVE) 11/08/20 14:35 Urine Blood NEGATIVE (NEGATIVE) 11/08/20 14:35 Urine Nitrite NEGATIVE (NEGATIVE) 11/08/20 14:35 Urine Bilirubin NEGATIVE (NEGATIVE) 11/08/20 14:35 Urine Urobilinogen NEGATIVE mg/dL (<2.0) 11/08/20 14:35 Ur Leukocyte Esterase NEGATIVE (NEGATIVE) 11/08/20 14:35 Urine WBC (Auto) 1 /HPF 11/08/20 14:35 Urine Mucus (Auto) RARE /LPF 11/08/20 14:35 Urine Ascorbic Acid NEGATIVE (NEGATIVE) 11/08/20 14:35 Impressions: Chest X-Ray 11/08/20 13:20 IMPRESSION: MULTIFOCAL PNEUMONIA. NO SIGNIFICANT INTERVAL CHANGE. Plan Plan of Treatment: Follow-up with PCP Half dose Eliquis for 4 weeks Prednisone taper Ivermectin course completed inpatient Avoid workplace exposure to pulmonary irritants such as pesticides Return to hospital immediately if respiratory status worsens Time Spent: Greater than 30 Minutes Stroke Is this a Stroke Patient?: No Acute Heart Failure Is this a Heart Failure Patient?: No
[2020-11-17] MEDS ORDERED: FLUCONAZOLE 100 MG TABLET PO ONE (16:38)
== END 2020-11-12 18:30 | disposition home health service (06) | DRG 177 ==
LOC: ER 13:17 → EH 15:26 → 3N 17:02
PROVIDERS: ADMIT Internal Medicine; ATTEND Internal Medicine
DX: U07.1 COVID-19 (principal); J12.82 Pneumonia due to coronavirus disease 2019; J96.01 Acute respiratory failure with hypoxia; Z68.41 Body mass index [BMI] 40.0-44.9, adult; E66.01 Morbid (severe) obesity due to excess calories; Z79.899 Other long term (current) drug therapy; I10 Essential (primary) hypertension; Z82.49 Family history of ischemic heart disease and other diseases of the circulatory system; B37.2 Candidiasis of skin and nail
CPT/HCPCS: 36415; 71045; 80048; 80053; 81001; 82728; 83036; 83735; 84100; 85025; 85379; 86140; 94640; 99285; J1650; J2920; J3490; S0028